=== PATIENT | female | born 1975 | race Caucasian/White ===

== ENCOUNTER 2020-03-25 05:07 | Inpatient (IN) | payer OTHER, SELFPAY ==
[2020-03-25] VITALS (19 sets, daily range): BP systolic 90–128; BP diastolic 44–74; PULSE 86–113; RESP 24–38; TEMP 36.9–37.1; O2SAT 88–98; BMI 39.2
--- NOTE | ~2020-03-25 | XR_ITS ---
EXAMINATION: XR chest 1V portable DATE: 03/30/2020 05:41 INDICATION: Respiratory failure. TECHNIQUE: A single frontal view of the chest was obtained. COMPARISON: Chest single view 03/29/2020 FINDINGS: There are airspace opacities in all right lung zones and in left mid and lower lung zones. No pleural effusion or pneumothorax. The heart size is normal. The endotracheal tube tip is 5.0 cm ab ove the samira. The nasogastric tube tip is in the stomach. A right internal jugular central venous c atheter is seen with tip at the superior cavoatrial junction. IMPRESSION: 1. Stable diffuse lung disease, consistent with pneumonia versus pulmonary edema versus acute respira tory distress syndrome (ARDS). Reviewed, dictated and finalized at location A. IMPRESSION: 1. Stable diffuse lung disease, consistent with pneumonia versus pulmonary tonya a versus acute respiratory distress syndrome (ARDS).
--- NOTE | ~2020-03-25 | US_ITS ---
EXAMINATION: US venous doppler [facility] DATE: 03/31/2020 15:22 INDICATION: Lower limb edema. TECHNIQUE: Grayscale ultrasound images without and with compression and Doppler ultrasound images of the bilateral lower extremity veins were obtained. COMPARISON: None. FINDINGS: The visualized portions of right common femoral vein, profunda (deep) femoral vein, femoral vein, pop liteal vein, peroneal veins, posterior tibial veins, and greater saphenous vein outflow are patent. The visualized portions of left common femoral vein, profunda femoral vein, femoral vein, popliteal v ein, peroneal veins, posterior tibial veins, and greater saphenous vein outflow are patent. IMPRESSION: 1. No deep venous thrombosis. Reviewed, dictated and finalized at location A.
--- NOTE | ~2020-03-25 | XR_ITS ---
EXAMINATION: XR chest ET placement DATE: 03/27/2020 06:48 INDICATION: Respiratory failure. TECHNIQUE: A single frontal view of the chest was obtained. COMPARISON: Chest single view 03/25/2020 FINDINGS: The patient is rotated to her left. There are airspace opacities in all right lung zones an d in left mid and lower lung zones. No pleural effusion or pneumothorax. The heart size is normal. Th e endotracheal tube tip is 1.2 cm above the samira. The nasogastric tube tip is beyond the inferior m argin of the radiograph, but at least to the stomach. IMPRESSION: 1. Airspace opacities in right lung and in left mid and lower lung zones with interval worsening, con sistent with pulmonary edema versus pneumonia. Reviewed, dictated and finalized at location A. IMPRESSION: 1. Airspace opacities in right lung and in left mid and lower lung zones with i nterval worsening, consistent with pulmonary edema versus pneumonia.
--- NOTE | ~2020-03-25 | XR_ITS ---
EXAMINATION: XR abdomen NG/feed tube insert DATE: 03/27/2020 06:48 INDICATION: Orogastric tube placement. TECHNIQUE: A semiupright view of the abdomen was obtained. COMPARISON: None. FINDINGS: The lower abdomen is excluded. There are no visible dilated loops of bowel. The orogastric tube tip is in the stomach. IMPRESSION: 1. Orogastric tube tip in the stomach. Reviewed, dictated and finalized at location A.
--- NOTE | ~2020-03-25 | XR_ITS ---
XR chest 1V portable DATE: 03/25/2020 06:22 INDICATION: Shortness of breath TECHNIQUE: Portable upright AP chest on 03/25/2020 at 0622 hours COMPARISON: None FINDINGS: There are prominent bilateral pulmonary infiltrates, more prominent centrally, right greate r than left. The distribution favors pulmonary edema but pneumonia is a consideration as well. Minimal if any pleural effusion is evident. No pneumothorax. Heart size is not optimally evaluated on AP projection because of magnification. IMPRESSION: Prominent bilateral pulmonary infiltrates; pulmonary edema versus pneumonia Reviewed, dictated and finalized at location A. IMPRESSION: Prominent bilateral pulmonary infiltrates; pulmonary edema versus p neumonia
--- NOTE | ~2020-03-25 | US_ITS ---
EXAMINATION: US art doppler w press UE BI DATE: 04/05/2020 13:35 INDICATION: Peripheral arterial disease. TECHNIQUE: Segmental pressures and plethysmographic and Doppler waveforms of the upper extremity brigette eli were obtained. COMPARISON: None. FINDINGS: The right brachial artery pressure was 108 mmHg. The left brachial artery pressure was not measured d ue to the IV. The right finger:brachial systolic pressure ratio is 0.78 (normal > 0.8). Segmental pre ssure gradients are normal. Arterial Doppler waveforms are normal (normal upstroke < 0.2 s). The left finger:brachial systolic pressure ratio is 0.82. Arterial Doppler waveforms are normal. IMPRESSION: 1. Borderline decreased right finger:brachial systolic pressure ratio, consistent with arterial occlu sive disease. Reviewed, dictated and finalized at location A. IMPRESSION: 1. Borderline decreased right finger:brachial systolic pressure ratio, consiste nt with arterial occlusive disease.
--- NOTE | ~2020-03-25 | XR_ITS ---
EXAMINATION: XR chest 1V portable EXAM DATE: 04/05/2020 05:57 INDICATION: Respiratory failure. COVID-19 pneumonia. TECHNIQUE: Portable AP frontal chest x-ray was obtained. Comparison is made to prior examination from 04/04, 04/03. FINDINGS: Endotracheal tube tip is 5 centimeters above the samira (ideal range is between 2 to 5 cm). There is a right-sided IJ central venous line. There is a nasogastric tube seen with tip collimated off the study, but below the left hemidiaphragm. Extensive bilateral acute airspace disease with air bronchograms, and relative sparing of the lung ap ices. Possible small pleural effusions. There is no pneumothorax suspected. The cardiac silhouett e is enlarged. The bones and soft tissues are unremarkable. There is no significant interval hurtado e compared to prior exam. IMPRESSION: 1. Tubes, line in position. 2. Extensive bilateral acute airspace disease unchanged. Reviewed, dictated and finalized at location A.
--- NOTE | ~2020-03-25 | XR_ITS ---
XR chest 1V portable 04/01/2020 05:34 Indication: Respiratory failure Procedure: AP portable chest Comparison: Comparison to multiple prior studies sequentially, with oldest reviewed study dated 03/28. Findings: Endotracheal tube tip 6 cm above the samira. Heart size normal. NG tube in the stomach. Rig ht IJ central line tip near the cavoatrial junction. Diffuse bilateral airspace disease which may rep resent edema or pneumonia. No significant pleural effusion or pneumothorax. Impression: 1: Diffuse bilateral airspace disease may represent edema or pneumonia. Reviewed, dictated and finalized at location A. Impression: 1: Diffuse bilateral airspace disease may represent edema or pneumonia.
--- NOTE | ~2020-03-25 | XR_ITS ---
XR chest 1V portable 04/02/2020 05:54 Indication: Pneumonia. Procedure: AP portable chest Comparison: Comparison to multiple prior studies sequentially, with oldest reviewed study dated 03/29. Findings: Endotracheal tube tip 6.7 cm above the samira. NG tube in the stomach. Unchanged diffuse bi lateral airspace disease which may represent edema or pneumonia. No significant pleural effusion or p neumothorax. Right IJ central line tip in the SVC. Impression: 1: Unchanged diffuse bilateral airspace disease, edema versus pneumonia. Reviewed, dictated and finalized at location A. Impression: 1: Unchanged diffuse bilateral airspace disease, edema versus pneumonia.
--- NOTE | ~2020-03-25 | XR_ITS ---
XR chest 1V portable 03/31/2020 06:02 Indication: Respiratory failure Procedure: AP portable chest Comparison: 03/27/2020 Findings: Endotracheal tube tip 3.4 cm above the samira. NG tube in the stomach. Cardiomegaly with pu lmonary edema. Right pleural effusion. No pneumothorax. Right IJ central line tip in the SVC. NG tube in the stomach. Impression: 1: Moderate cardiomegaly with pulmonary edema which has progressed since prior examination. Reviewed, dictated and finalized at location A. Impression: 1: Moderate cardiomegaly with pulmonary edema which has progressed since prior examination.
--- NOTE | ~2020-03-25 | XR_ITS ---
EXAMINATION: XR chest 1V portable DATE: 03/28/2020 05:44 INDICATION: Respiratory failure. TECHNIQUE: A single frontal view of the chest was obtained. COMPARISON: Chest single view 03/27/2020 FINDINGS: There are airspace opacities in all right lung zones and in left mid and lower lung zones. No pleural effusion or pneumothorax. The heart size is normal. The endotracheal tube tip is 4.2 cm ab ove the samira. The nasogastric tube tip is beyond the inferior margin of the radiograph, but at leas t to the stomach. A right internal jugular central venous catheter is seen with tip at the superior c avoatrial junction. IMPRESSION: 1. Stable airspace opacities in right lung and left mid and lower lung zones, consistent with pneumon ia versus pulmonary edema. Reviewed, dictated and finalized at location A. IMPRESSION: 1. Stable airspace opacities in right lung and left mid and lower lung zones, c onsistent with pneumonia versus pulmonary edema.
--- NOTE | ~2020-03-25 | XR_ITS ---
EXAMINATION: XR chest 1V portable EXAM DATE: 04/03/2020 06:07 INDICATION: Respiratory failure. COVID-19. TECHNIQUE: Portable AP frontal chest x-ray was obtained. Comparison is made to prior examination from 04/02/2020. FINDINGS: Endotracheal tube tip is 5-6 centimeters above the samira (ideal range is between 2 to 5 cm ). There is a right-sided IJ central venous line. There is a nasogastric tube seen with tip collimat ed off the study, but below the left hemidiaphragm. Extensive bilateral acute airspace disease with air bronchograms, and relative sparing of the lung ap ices. Possible small pleural effusions. There is no pneumothorax suspected. The cardiac silhouett e is enlarged. The bones and soft tissues are unremarkable. There is no significant interval hurtado e compared to prior exam. IMPRESSION: 1. ET tube could be safely advanced 1-2 cm. 2. Extensive bilateral acute airspace disease unchanged. Reviewed, dictated and finalized at location A.
--- NOTE | ~2020-03-25 | XR_ITS ---
EXAMINATION: XR chest 1V portable EXAM DATE: 04/04/2020 06:09 INDICATION: Respiratory failure. COVID-19 pneumonia. TECHNIQUE: Portable AP frontal chest x-ray was obtained. Comparison is made to prior examination from 04/03. FINDINGS: Endotracheal tube tip is 4 centimeters above the samira (ideal range is between 2 to 5 cm). There is a right-sided IJ central venous line. There is a nasogastric tube seen with tip collimated off the study, but below the left hemidiaphragm. Extensive bilateral acute airspace disease with air bronchograms, and relative sparing of the lung ap ices. Possible small pleural effusions. There is no pneumothorax suspected. The cardiac silhouett e is enlarged. The bones and soft tissues are unremarkable. There is no significant interval hurtado e compared to prior exam. IMPRESSION: 1. Tubes, line in position. 2. Extensive bilateral acute airspace disease unchanged. Reviewed, dictated and finalized at location A.
--- NOTE | ~2020-03-25 | XR_ITS ---
EXAMINATION: XR chest port-a-cath/central DATE: 03/27/2020 08:10 INDICATION: Central line placement. TECHNIQUE: A single frontal view of the chest was obtained. COMPARISON: Chest single view at 6:14 AM FINDINGS: There are airspace opacities in all right lung zones and in left mid and lower lung zones. No pleural effusion or pneumothorax. The heart size is normal. The endotracheal tube tip is 4.8 cm ab ove the samira. The nasogastric tube tip is beyond the inferior margin of the radiograph, but at leas t to the stomach. A right internal jugular central venous catheter is seen with tip at the superior c avoatrial junction. IMPRESSION: 1. New central line tip at superior cavoatrial junction. 2. Stable airspace opacities in right lung and in left mid and lower lung zones, consistent with pneu monia versus pulmonary edema. Reviewed, dictated and finalized at location A. IMPRESSION: 1. New central line tip at superior cavoatrial junction. 2. Stable airspace opacities in right lung and in left mid and lower lung zones , consistent with pneumonia versus pulmonary edema.
--- NOTE | ~2020-03-25 | XR_ITS ---
EXAMINATION: XR chest 1V portable DATE: 03/29/2020 05:28 INDICATION: Respiratory failure. TECHNIQUE: A single frontal view of the chest was obtained. COMPARISON: Chest single view 03/28/2020 FINDINGS: There are airspace opacities in all lung zones bilaterally with relative sparing of left eliana ng apex. No pleural effusion or pneumothorax. The heart size is normal. The endotracheal tube tip is 5.7 cm above the samira. The nasogastric tube tip is beyond the inferior margin of the radiograph, bu t at least to the stomach. A right internal jugular central venous catheter is seen with tip in the s uperior vena cava. IMPRESSION: 1. Diffuse lung disease with improvement on the left, consistent with pneumonia versus pulmonary tonya a. Reviewed, dictated and finalized at location A. IMPRESSION: 1. Diffuse lung disease with improvement on the left, consistent with pneumonia versus pulmonary edema.
--- NOTE | ~2020-03-25 | US_ITS ---
EXAMINATION: US art doppler w press LE DATE: 04/05/2020 13:35 INDICATION: Peripheral arterial disease. TECHNIQUE: Segmental pressures and plethysmographic and Doppler waveforms of the brachial and lower e xtremity arteries were obtained. COMPARISON: None. FINDINGS: Right brachial artery pressure is 106 mm Hg. The right ankle-brachial index (MACKENZIE) is 1.09 (normal >= 0.9-1.0). The right great toe-brachial index (TBI) could not be measured due to inability to cuff-occlude the artery (normal >= 0.65). Arterial Do ppler waveforms are biphasic from common femoral artery to popliteal artery, triphasic in posterior t ibial artery, and poorly detectable in dorsalis pedis. The left MACKENZIE is 0.99. The left great toe arterial signal was not detectable. Arterial Doppler wavefor ms are triphasic from common femoral artery to posterior tibial artery and biphasic in dorsalis pedis . IMPRESSION: 1. Undetectable arterial signal in left great toe. 2. Normal ABIs. Reviewed, dictated and finalized at location A.
--- NOTE | 2020-03-25 05:18 | ECG_ITS ---
Measurements Intervals [place] Rate: 109 P: 30 [place]: 170 QRS: 17 QRSD: 97 T: 85 QT: 329 QTc: 443 Interpretive Statements SINUS TACHYCARDIA LEFT VENTRICULAR HYPERTROPHY WITH ST-T CHANGE MINIMAL Q WAVES- INFERIOR LEADS BASELINE ARTIFACT- I ABNORMAL ECG Electronically Signed On 03-25-2020 7:03:20 CDT by Rafal Shook D.O.
--- NOTE | 2020-03-25 05:26 | ED.SOB ---
HPI - SOB/Dyspnea General Chief Complaint: Shortness of Breath/Dyspnea <Shelly Olvera MD - Last Filed: 03/26/20 04:11> Stated Complaint: weakness/ sob/ covid + <Shelly Olvera MD - Last Filed: 03/26/20 04:11> Time Seen by Provider: 03/25/20 05:19 <Shelly Olvera MD - Last Filed: 03/26/20 04:11> Source: patient <Shelly Olvera MD - Last Filed: 03/26/20 04:11> Mode of arrival: EMS <Shelly Olvera MD - Last Filed: 03/26/20 04:11> Limitations: no limitations <Shelly Olvera MD - Last Filed: 03/26/20 04:11> History of Present Illness HPI Narrative: This patient is a 45 year old female who presents from home for evaluation of shortness with COVID 19. Patient reports she developed symptoms of Covid last Friday evening. Her symptoms include cough, congestion and shortness of breath. She has also been having chills and fever. Tonight she was unable catch her breath. She also reports midsternal chest pressure that resolved when EMS placed her on oxygen. EMS states her oxygen was low but did not specify oxygen saturation. She denies nausea, vomiting or diarrhea. <Shelly Olvera MD - Last Filed: 03/26/20 04:11> Related Data Home Medications: Home Medications Medication Instructions Recorded Confirmed atorvastatin 20 mg PO HS 03/25/20 03/25/20 cephalexin [Keflex] 500 mg PO QID 03/25/20 03/25/20 citalopram 40 mg PO DAILY 03/25/20 03/25/20 lisinopril 10 mg PO DAILY 03/25/20 03/25/20 metoprolol tartrate 25 mg PO DAILY 03/25/20 03/25/20 mirabegron [Myrbetriq] 25 mg PO DAILY 03/25/20 03/25/20 nortriptyline 25 mg PO HS 03/25/20 03/25/20 pantoprazole 20 mg PO DAILY 03/25/20 03/25/20 warfarin 8 mg PO DAILY 03/25/20 03/25/20 <Shelly Olvera MD - Last Filed: 03/26/20 04:11> Allergies/Adverse Reactions: Allergies Allergy/AdvReac Type Severity Reaction Status Date / Time No Known Allergies Allergy Verified 03/25/20 05:26 <Shelly Olvera MD - Last Filed: 03/26/20 04:11> Review of Systems Review of Systems: All systems reviewed & are unremarkable except as noted in HPI and below <Shelly Olvera MD - Last Filed: 03/26/20 04:11> Constitutional: Constitutional: Denies chills and Denies fever(s) <Shelly Olvera MD - Last Filed: 03/26/20 04:11> [facility]LY [facility], [facility] Past Medical History Medical History: Medical History (Updated 03/25/20 @ 15:51 by Zakia Palomares PA-C) Anxiety Cerebrovascular accident (~2017) With mild right foot weakness. 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 Depression Gastroesophageal reflux disease Hyperlipidemia Hypertension Urinary, incontinence, stress female <Shelly Olvera MD - Last Filed: 03/26/20 04:11> Surgical History Surgical History: Surgical History (Updated 03/25/20 @ 13:00 by Zakia Palomares PA-C) History of bilateral salpingectomy (~2018) History of bladder suspension procedure (~2018) History of cholecystectomy (~1997) History of endometrial ablation (~2018) Previous section In 1993 & 1995. <Shelly Olvera MD - Last Filed: 03/26/20 04:11> Family History Family History: Family History (Updated 03/25/20 @ 13:01 by Zakia Palomares PA-C) Father Diabetes mellitus Lupus anticoagulant disorder Mother Hypertension <Shelly Olvera MD - Last Filed: 03/26/20 04:11> Social History Social History: Social History (Updated 03/25/20 @ 15:52 by Zakia Palomares PA-C) Social History: Surrogate decision maker: Morgan Yang, spouse. Code status: Full code. Smoking packs per day: 0.05 Smoking cigarettes per day: 1.0 Years smoked: 20 Smoking pack-years: 1.00 Smoking status: Former smoker Tobacco type: cigarettes Smoking end date: 07/07/17 Alcohol intake: never Substance use: never Additional living arrangements comments: Resides in [facility]
[2020-03-25 05:43] LABS: Alveolar/Arterial O2 Gradient 223.2 mmHg; Base Excess ABG -2.5 mEq/l (+/-2.0); HCO3 ABG 21.4 mEq/l (22.0-26.0); Oxygen Saturation ABG 90.9 % (95.0-100.0); PCO2 ABG 34.4 mmHg (35.0-45.0); PO2 ABG 58.5 mmHg (80.0-100.0); Total Hemoglobin 12.6 g/dL (12.0-18.0); pH ABG 7.412 (7.350-7.450)
[2020-03-25 05:44] LABS: Oxygen Content ABG 15.6 %vol (16.0-22.0); Oxyhemoglobin 88.2 % THb (90.0-100.0)
[2020-03-25 05:45] LABS: Device NASAL CANNULA; Fractional Inspired Oxygen 45 %; Modified Allen's Test Pass; Site Drawn LEFT RADIAL
[2020-03-25 05:52] LABS: Basophils Percent Auto 0.3 % (0.2-1.2); Eosinophils Percent Auto 0.1 % (0-4.4); Hematocrit 38.2 % (37.0-47.0); Hemoglobin 12.1 g/dL (12.0-15.0); Immature Granulocyte Absolute 0.05 K/mm3 (0.00-0.031); Immature Granulocyte Percent A 0.5 % (0-0.5); Lymphocytes Absolute Auto 0.79 K/mm3 (0.9-3.2); Lymphocytes Percent Auto 8.3 % (18.3-44.2); Mean Corpuscular HGB Conc 31.7 g/dl (32-36); Mean Corpuscular Hemoglobin 24.4 pg (26-34); Mean Platelet Volume 11.2 fl (7.4-10.4); Monocytes Absolute Auto 0.5 K/mm3 (0.1-0.6); Monocytes Percent Auto 5.6 % (2.6-8.5); Neutrophils Absolute Auto 8.1 K/mm3 (1.3-6.7); Neutrophils Percent Auto 85.2 % (45.5-73.1); Platelet Count Result 216 k/mm3 (150-375); Red Blood Count 4.96 M/mm3 (4.2-5.4); Red Cell Distribution Width 17.6 % (11.5-14.5); White Blood Count 9.5 K/mm3 (4.5-10.0)
[2020-03-25 06:02] LABS: INR 2.3; Prothrombin Time 25.2 Seconds (11.1-14.7)
[2020-03-25 06:03] LABS: Partial Thromboplastin Time 60.9 SECONDS (22.3-36.8)
[2020-03-25 06:04] LABS: D Dimer 1.42 ug/mL (<0.48)
[2020-03-25 06:09] LABS: Lactic Acid Reflex 1.6 mmol/L (0.7-2.1)
[2020-03-25 06:14] LABS: Alanine Aminotransferase 32 U/L (4-35); Albumin Level 3.5 g/dL (3.5-5.1); Alkaline Phosphatase 84 U/L (38-126); Anion Gap 7 mmol/L (8-16); Aspartate Amino Transferase 58 U/L (14-36); Bilirubin,Total 0.4 mg/dL (0.2-1.3); Blood Urea Nitrogen 23 mg/dL (7-17); CRP 7.9 mg/dL (<1.0); Calcium 8.6 mg/dL (8.4-10.2); Carbon Dioxide 25 mmol/L (22-30); Chloride 99 mmol/L (98-107); Estimated CRCL calculation 58 ml/min; Estimated Glomerular Filt Rate 32; Glucose 126 mg/dL (65-105); Potassium 4.1 mmol/L (3.4-5.0); Sodium 131 mmol/L (137-145)
[2020-03-25 06:25] LABS: Troponin I 0.048 ng/mL (0.000-0.034)
[2020-03-25] MEDS: LACTATED RINGERS 1,000 ML 999 ML IV CONT (06:38)
--- NOTE | 2020-03-25 08:25 | PC.NURSE ---
Pt up to bathroom via wheelchair and O2. Pt became very SOB and O2 dropped to 69%. Placed pt on 15 L non rebreather.
--- NOTE | 2020-03-25 10:20 | ADMGEN ---
This patient, Nadia Yang, was admitted to Intensive Care Unit-1. Patient/family oriented to hospital policies and general routines including ID bracelet, bed and alarms, visiting hours, pain management, procedures, bathroom and other care routines, personal items, smoking policy, room service/diet, and visiting hours. Valuables list has been completed. Information on how to activate the Rapid Response Team has been discussed. Patient/Family are encouraged to report perceived risks to care and to ask questions if they do not understand what they are told or what they should do.
--- NOTE | 2020-03-25 13:00 | PM.IMHP ---
H&P: HPI History of Present Illness Date/Time: 03/25/20 13:00 <Zakia Palomares PA-C - Last Filed: 03/25/20 16:14> Chief complaint: Shortness of breath. <Zakia Palomares PA-C - Last Filed: 03/25/20 16:14> Narrative: Nadia Yang is a 45-year-old female with history of stroke in 2018 on long-term anticoagulation with warfarin, hypertension, hyperlipidemia, and GERD who presented to the emergency department earlier this morning via EMS from home for evaluation of shortness of breath. She has been in quarantine from work for the past 2 weeks as her was exposed to COVID-19. Unfortunately sometime last Friday evening she began feeling poorly to include subjective fever, chills, sweats, diffuse body aches, headaches, mildly productive cough, congestion, and shortness of breath. She has been taking Tylenol for her fevers and has been trying to stay hydrated however her appetite is not that great. Over the past 48 hours or so she has had progressive shortness of breath and she called EMS this morning and was reportedly hypoxic however SpO2 was not documented in their notes. She has since been started on Airvo and feels much better with added pressure. She has no significant complaints at this time, and she specifically denies anosmia, dysgeusia, chest pain, pleuritic pain, palpitations, orthopnea, PND, nausea, vomiting, and diarrhea. <Zakia Palomares PA-C - Last Filed: 03/25/20 16:14> Review of Systems Review of Systems: Narrative: Twelve systems were reviewed with pertinent positives and negatives as per HPI. Except as documented, all other systems were reviewed and are negative. <Zakia Palomares PA-C - Last Filed: 03/25/20 16:14> [facility] Past Medical History Medical History: Medical History Anxiety Cerebrovascular accident (~2018) With mild right foot weakness. 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 Depression Gastroesophageal reflux disease Hyperlipidemia Hypertension Urinary, incontinence, stress female <ANUJ Mccann Last Filed: 03/25/20 16:14> Surgical History Surgical History: Surgical History History of bilateral salpingectomy (~2018) History of bladder suspension procedure (~2018) History of cholecystectomy (~1997) History of endometrial ablation (~2018) Previous section In 1993 & 1995. <Zakia Palomares PA-C - Last Filed: 03/25/20 16:14> Family History Family History: Family History Father Diabetes mellitus Lupus anticoagulant disorder Mother Hypertension <Zakia Palomares PA-C - Last Filed: 03/25/20 16:14> Social History Social History: Social History Social History: Surrogate decision maker: Morgan Yang, spouse. Code status: Full code. Smoking packs per day: 0.05 Smoking cigarettes per day: 1.0 Years smoked: 20 Smoking pack-years: 1.00 Smoking status: Former smoker Tobacco type: cigarettes Smoking end date: 07/07/17 Alcohol intake: never Substance use: never Additional living arrangements comments: Resides in [place], [place] with her spouse. Children are grown. 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 Gender identity (if verbalized by the patient): Female Spiritual care concerns: No <Zakia Palomares PA-C - Last Filed: 03/25/20 16:14> Meds Home Medications and Allergies Home medications: Home Medications Medication Instructions Recorded Confirmed Type atorvastatin 20 mg PO HS 03/25/20 03/25/20 History cephalexin [Keflex] 500 mg PO QID 03/25/20 03/25/20 History citalopram 40 mg PO DAILY 03/25/20 03/25/20 History lisinopril 10 mg PO DAILY 03/25/20 03/25/20 History
[2020-03-25 13:01] LABS: Anion Gap 7 mmol/L (8-16); Blood Urea Nitrogen 24 mg/dL (7-17); Calcium 8.4 mg/dL (8.4-10.2); Carbon Dioxide 23 mmol/L (22-30); Chloride 100 mmol/L (98-107); Estimated CRCL calculation 73 ml/min; Estimated Glomerular Filt Rate 44; Glucose 168 mg/dL (65-105); Potassium 4.4 mmol/L (3.4-5.0); Sodium 130 mmol/L (137-145)
[2020-03-25 13:12] LABS: NT Pro B Type Natriuretic Pept 168 PG/ML (5-100); Troponin I 0.016 ng/mL (0.000-0.034)
[2020-03-25] MEDS: REMDESIVIR 200 MG/NS 250 ML 200 MG/250 ML BAG 250 MG IVPB (14:19)
[2020-03-25 16:00] LABS: Lactate Dehydrogenase 1659 U/L (313-618)
[2020-03-25 16:11] LABS: Troponin I 0.012 ng/mL (0.000-0.034)
[2020-03-25] MEDS: SODIUM CHLORIDE 0.9% IV 1,000 ML 100 ML IV CONT (16:42)
[2020-03-25] MEDS: WARFARIN (*PBKC) 4 MG TABLET 8 MG PO (16:46)
[2020-03-25] MEDS: CITALOPRAM HYDROBROMIDE 20 MG TABLET 40 MG PO (17:10)
[2020-03-25] MEDS: MIRABEGRON 25 MG ER TABLET PO (17:10)
[2020-03-25] MEDS: NORTRIPTYLINE HCL 25 MG CAPSULE PO (19:45)
[2020-03-25] MEDS: ATORVASTATIN 20 MG TABLET PO (19:45)
[2020-03-26] VITALS (23 sets, daily range): BP systolic 96–125; BP diastolic 56–84; PULSE 83–99; RESP 23–40; TEMP 36.4–37.1; O2SAT 88–98
[2020-03-26 07:04] LABS: Hematocrit 36.6 % (37.0-47.0); Hemoglobin 11.5 g/dL (12.0-15.0); Mean Corpuscular HGB Conc 31.4 g/dl (32-36); Mean Corpuscular Hemoglobin 24.1 pg (26-34); Mean Corpuscular Volume 76.7 fl (80-100); Mean Platelet Volume 10.1 fl (7.4-10.4); Platelet Count Result 199 k/mm3 (150-375); Red Blood Count 4.77 M/mm3 (4.2-5.4); Red Cell Distribution Width 17.3 % (11.5-14.5)
[2020-03-26 07:15] LABS: INR 2.9; Prothrombin Time 29.5 Seconds (11.1-14.7)
[2020-03-26 07:18] LABS: Hemoglobin A1C 5.8 % (<5.7)
[2020-03-26 07:26] LABS: Alanine Aminotransferase 32 U/L (4-35); Albumin Level 3.6 g/dL (3.5-5.1); Alkaline Phosphatase 80 U/L (38-126); Anion Gap 5 mmol/L (8-16); Aspartate Amino Transferase 73 U/L (14-36); Bilirubin,Total 0.6 mg/dL (0.2-1.3); Blood Urea Nitrogen 21 mg/dL (7-17); Calcium 8.7 mg/dL (8.4-10.2); Carbon Dioxide 23 mmol/L (22-30); Chloride 105 mmol/L (98-107); Estimated CRCL calculation 93 ml/min; Estimated Glomerular Filt Rate 59; Glucose 108 mg/dL (65-105); Potassium 4.8 mmol/L (3.4-5.0); Sodium 133 mmol/L (137-145)
[2020-03-26 08:24] LABS: Lactate Dehydrogenase 2413 U/L (313-618)
--- NOTE | 2020-03-26 08:48 | WPDCNINT ---
Assessment and Plan Assessment and plan (1) Acute respiratory failure with hypoxia: Code(s): J96.01 - Acute respiratory failure with hypoxia Status: Acute Assessment and Plan: Acute Respiratory failure secondary to COVID-19 pneumonia Continue AirVo support to prevent hypoxemia and end organ damage. PCXR IMPRESSION: Prominent bilateral pulmonary infiltrates; pulmonary edema versus pneumonia ABG reviewed IS, OOB Bronchodilators (2) Pneumonia due to COVID-19 virus: Code(s): U07.1 - COVID-19; J12.89 - Other viral pneumonia Status: Acute Assessment and Plan: SARS-CoV-2 PCR positive Patient is in Airborne, Droplet and Contact Isolation Continue dexamethasone and Remdesivir. Both started 03/25 Continue anticoagulation with warfarin monitor inflammatory markers Discussed benefits and risks of convalscent plasma therapy for COVID-19. I explained patient the risks of donor plasma which includes allergic reaction, transfusion reaction, possible transmission of infections like Hepatitis and HIV and even . Explained that donor plasma has shown benefit in some studies but is not a proven therapy. Patient understands the risks, is agreeable to proceed and gave her informed consent. since patient has been worsening as far as hypoxia is concerned and still not on mechanical ventilation, she may benefit from therapy. I have placed order for 1 unit of convalscent plasma. (3) Renal failure: Code(s): N19 - Unspecified kidney failure Status: Acute Assessment and Plan: patient presented with elevated creatinine of 1.7 and was assumed to be secondary to dehydration. And was given conservative IV fluids on presentation and creatinine has now improved normal level of 1. She does have good urine output Continue to monitor creatinine, urine output and electrolytes hold further IV fluids at this time. (4) Cerebrovascular accident: Onset Date: ~2017 Code(s): I63.9 - Cerebral infarction, unspecified Status: Acute Assessment and Plan: history of CVA although details are not available this time continue anticoagulation with warfarin the patient is on. Daily INR monitoring continue statin (5) Hypertension: Code(s): I10 - Essential (primary) hypertension Status: Acute Assessment and Plan: blood pressure isn't controlled range continue p.o. metoprolol that she is on Additional Plan DVT prophylaxis - patient is on Coumadin Stress ulcer prophylaxis - continue PPI Nutrition - regular diet Code Status - I discussed with patient this in detail and she requests to be Full Code at this time. She is agreeable to intubation if needed Total Critical Care Time - 40 minutes Due to a high probability of clinically significant, life threatening deterioration, the patient required my highest level of preparedness to intervene emergently and I personally spent this critical care time directly and personally managing the patient. This critical care time included obtaining a history; examining the patient; pulse oximetry; ordering and review of studies; arranging urgent treatment with development of a management plan; evaluation of patient's response to treatment; frequent reassessment; and discussions with other providers. It was exclusive of separately billable procedures and treating other patients and teaching time. 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 She has been in quarantine from work for the past 2 weeks as her was exposed to
[2020-03-26] MEDS: DEXAMETHASONE SOD PHOS INJ 4 MG/ML VIAL 6 MG IV PUSH (08:50)
[2020-03-26] MEDS: LEVALBUTEROL HFA (*SP) 15 GM INHALER 2 PUFF INHALATION ×2 (08:50→16:36)
[2020-03-26] MEDS: CITALOPRAM HYDROBROMIDE 20 MG TABLET 40 MG PO (08:51)
[2020-03-26] MEDS: METOPROLOL TARTRATE 25 MG TABLET PO (08:51)
[2020-03-26] MEDS: MIRABEGRON 25 MG ER TABLET PO (08:51)
[2020-03-26] MEDS: PANTOPRAZOLE SOD SESQUIHYDRATE 20 MG TAB PO (08:51)
--- NOTE | 2020-03-26 11:54 | PC.NURSE ---
Dr. Acuña ordered 1 unit COVID-19 Convalescent plasma for patient. Enrollment forms unavailable for printing from FDA website. Doctor, manager of photography, director, RN, and blood bank notified. Calls to be made 03/27/20 to obtain forms to order COVID-19 convalescent plasma for patient.
--- NOTE | 2020-03-26 14:09 | PM.IMPN ---
Progress Note: A&P Assessment and Plan (1) Sepsis: Code(s): A41.9 - Sepsis, unspecified organism Status: Acute Assessment and Plan: Present on admission and supported by tachycardia, tachypnea, and organ dysfunction due to sepsis from COVID-19, with a qSOFA score of 2 and a SOFA score of 7. Lactic acid levels within normal limits, blood cultures have been obtained and are pending. 03/26/20 14:09 patient is a 45-year-old female state history of stroke presented emergency department with shortness of breath and hypoxic patient is being expose to COVID-19 as her is positive and concerned that patient have COVID-19 has been tested and positive, patient was placed in isolation and on Airvo which did improve patient oxygen saturation, today spoke with the dry man patient is hypoxic and on Airvo, and dexamethasone suggesting the patient will benefit from convalscent plasma therapy for COVID-19, Dr. Acuña spoke with the patient and has agreed to receive the treatment and 1 unit dose ordered, I spoke the patient on the phone and saw from outside her last door patient is feeling much better compared to when she arrived, denies any fever or chills and not as hypoxic. appreciate Dr. Acuña with his help managing this patient (2) Acute respiratory failure with hypoxia: Code(s): J96.01 - Acute respiratory failure with hypoxia Status: Acute Assessment and Plan: Secondary to COVID pneumonia. Continue Airvo therapy. (3) Pneumonia due to COVID-19 virus: Code(s): U07.1 - COVID-19; J12.89 - Other viral pneumonia Status: Acute Assessment and Plan: She has been started remdesivir and dexamethasone per protocol. Continue contact, droplet, airborne isolation. (4) Elevated troponin: Code(s): R79.89 - Other specified abnormal findings of blood chemistry Status: Acute Assessment and Plan: Likely these are elevated in the setting of hypoxia as she is having no chest pain. Continue to trend to rule out significant jump, and monitor on telemetry overnight. Obtain echocardiogram. (5) Renal failure: Code(s): N19 - Unspecified kidney failure Status: Acute Assessment and Plan: Patient denies history of renal failure, and I suspect this is secondary to infection from COVID pneumonia. May also be a component of dehydration due to insensible losses from fevers. Cautious IV fluid rehydration overnight only, to avoid volume overload. (6) Current use of oysterman anticoagulation: Code(s): Z79.01 - long term care phlebotomist (current) use of anticoagulants Status: Acute Assessment and Plan: INR is therapeutic at 2.3 and will be monitored daily. (7) Hypertension: Code(s): I10 - Essential (primary) hypertension Status: Acute Assessment and Plan: Blood pressures were reviewed and they have been running a bit soft at times. For now will continue with her metoprolol but hold lisinopril. Continue to monitor blood pressures closely. Subjective Date/time seen: 03/26/20 14:09 patient is a 45-year-old female state history of stroke presented emergency department with shortness of breath and hypoxic patient is being expose to COVID-19 as her is positive and concerned that patient have COVID-19 has been tested and positive, patient was placed in isolation and on Airvo which did improve patient oxygen saturation, today spoke with the dry man patient is hypoxic and on Airvo, and dexamethasone suggesting the patient will benefit fr
[2020-03-26] MEDS: REMDESIVIR 100 MG/NS 250 ML 100 MG/250 ML BAG 250 MG IVPB (14:37)
[2020-03-26] MEDS: FUROSEMIDE INJ 40 MG/4 ML VIAL 20 MG IV PUSH (17:49)
--- NOTE | 2020-03-26 20:10 | PC.NURSE ---
Spoke with Dr. Acuña. Patient states she doesn't feel short of breath. May increase Bipap settings to 16/8. If patient continues to deteriorate call for further orders as patient is a full code and may need intubation. [facility] notified, changes are being made.
[2020-03-26] MEDS: NORTRIPTYLINE HCL 25 MG CAPSULE PO (20:30)
[2020-03-26] MEDS: ATORVASTATIN 20 MG TABLET PO (20:30)
[2020-03-26] MEDS: WARFARIN (*PBKC) 4 MG TABLET 8 MG PO (20:30)
[2020-03-27] VITALS (76 sets, daily range): BP systolic 87–130; BP diastolic 47–92; PULSE 61–130; RESP 16–40; TEMP 36.1–36.8; O2SAT 91–100; BMI 39.3
[2020-03-27 03:45] LABS: Hematocrit 35.1 % (37.0-47.0); Hemoglobin 11.1 g/dL (12.0-15.0); Mean Corpuscular HGB Conc 31.6 g/dl (32-36); Mean Corpuscular Hemoglobin 24.3 pg (26-34); Mean Platelet Volume 10.6 fl (7.4-10.4); Platelet Count Result 236 k/mm3 (150-375); Red Blood Count 4.56 M/mm3 (4.2-5.4); Red Cell Distribution Width 17.6 % (11.5-14.5); White Blood Count 11.6 K/mm3 (4.5-10.0)
[2020-03-27 03:55] LABS: INR 3.4
[2020-03-27 03:58] LABS: Alanine Aminotransferase 32 U/L (4-35); Albumin Level 3.3 g/dL (3.5-5.1); Alkaline Phosphatase 89 U/L (38-126); Anion Gap 6 mmol/L (8-16); Aspartate Amino Transferase 67 U/L (14-36); Bilirubin,Total 0.5 mg/dL (0.2-1.3); Blood Urea Nitrogen 23 mg/dL (7-17); Calcium 8.8 mg/dL (8.4-10.2); Carbon Dioxide 28 mmol/L (22-30); Chloride 103 mmol/L (98-107); Estimated CRCL calculation 93 ml/min; Estimated Glomerular Filt Rate 59; Glucose 105 mg/dL (65-105); Magnesium 1.8 mg/dL (1.6-2.3); Potassium 3.9 mmol/L (3.4-5.0); Sodium 137 mmol/L (137-145)
[2020-03-27] MEDS: LORazepam (*CRX) 0.5 MG TABLET PO (04:26)
[2020-03-27] MEDS: PROPOFOL IV EMULSION 100 ML 3.9 MG IV CONT (06:29)
[2020-03-27] MEDS: RAPID SEQUENCE INTUBATION KIT 1 EACH (06:33)
[2020-03-27] MEDS: FENTANYL 2,500MCG/NS250ML(*CRX 2,500 MCG/250 ML BAG IV CONT (06:34)
[2020-03-27] MEDS: ROCURONIUM BROMIDE 50 MG/5 ML VIAL 40 MG IV PUSH (06:54)
--- NOTE | 2020-03-27 06:54 | WPDPROCEDUR ---
Procedures Intubation Intubation Date: 03/27/20 Intubation Time: 05:55 A pre-procedural Time-Out was completed immediately before starting the procedure and confirmed: Patient Identification, Site, Procedure, Patient Position and the Availability of Requisite Equipment: Yes Sedative: etomidate Mg given: 40 Paralytic: succinylcholine Mg given: 100 Laryngoscope: fiber optic video scope ET tube size: 7.5 Tube secured depth (cm): 26 Tube secured location: lips Tube placement confirmation: visualized tube passing through cords, equal breath sounds bilaterally, no breath sounds over epigastrium and confirmation by capnometry Patient tolerated procedure: well and no complications Intubation complications: hypoxia (88%)
--- NOTE | 2020-03-27 07:00 | WPDINTPN ---
Progress Note: A&P Assessment and Plan (1) Acute respiratory failure with hypoxia: Code(s): J96.01 - Acute respiratory failure with hypoxia Status: Acute Assessment and Plan: Acute Respiratory failure secondary to COVID-19 pneumonia. 03/25- patient was on 8 L nasal cannula on admission 03/26- hypoxia worsened and patient was on AirVo. Later in the evening patient was placed on BiPAP due to continued worsening of hypoxia and was given Lasix. 03/27- Patient required to be intubated early this morning Continue full mechanical ventilation support to prevent hypoxemia/hypercarbia and end organ damage ABGs pending Peep is at 12 and FiO2 is at 100%. PCXR reviewed. ET tube was withdrawn 2 cm earlier after the 1st chest x-ray but ETT advanced by 1 cm after the last chest x-ray obtained this morning Currently at 26 cm at the lip Low tidal volume ventilation strategy to prevent volutrauma Bronchodilators Patient will need neuromuscular doretha to prevent deterioration and desaturation at least for 1st 24 hours I will consider prone ventilation depending on her response echocardiogram is ordered and pending (2) Pneumonia due to COVID-19 virus: Code(s): U07.1 - COVID-19; J12.89 - Other viral pneumonia Status: Acute Assessment and Plan: SARS-CoV-2 PCR positive Patient is in Airborne, Droplet and Contact Isolation Continue dexamethasone and Remdesivir. Both started 03/25 Continue anticoagulation monitor inflammatory markers Convalscent plasma is ordered for patient afternoon obtaining informed consent. there has been delay in obtaining the plasma to change in program and requirements as per the blood bank who supplies. I will continue pursue that today (3) Renal failure: Code(s): N19 - Unspecified kidney failure Status: Acute Assessment and Plan: patient presented with elevated creatinine of 1.7 and was assumed to be secondary to dehydration. And was given conservative IV fluids on presentation and creatinine has now improved normal level of 1. she was given 20 mg of Lasix yesterday due to worsening hypoxia to rule out any component of pulmonary edema patient was given a small fluid bolus at the time of intubation due to drop in blood pressure Continue to monitor creatinine, urine output and electrolytes hold further IV fluids at this time. (4) Cerebrovascular accident: Onset Date: ~2017 Code(s): I63.9 - Cerebral infarction, unspecified Status: Acute Assessment and Plan: history of CVA although details are not available this time continue anticoagulation. INR is supratherapeutic hence will hold warfarin at this time Daily INR monitoring once INR is in sub therapeutic range will transition to Lovenox or heparin inpatient for more accurate regulation and monitoring of anticoagulation continue statin (5) Hypertension: Code(s): I10 - Essential (primary) hypertension Status: Acute Assessment and Plan: blood pressure is on the softer side now after intubation and sedation will hold antihypertensives Additional Plan DVT prophylaxis - patient is on Coumadin and INR is supratherapeutic Stress ulcer prophylaxis - continue PPI Nutrition - NPO at this time will start tube feeds as soon as possible Code Status - I discussed with patient this in detail on admission and patient requests to be Full Code at this time. She was agreeable to intubation . central line was placed emergently due to poor IV access as patient required multiple infusions for sedation and paralysis from mechanical ventilation and may need vasopressor Total Critical Care Time - 60 minutes Due to a high probability of clinically significant, life threatening deterioration, the patient required my highest level of preparedness to intervene emergently and I personally spent this critical care time directly and personally managing the patient. This critical ca
[2020-03-27] MEDS: MIDAZOLAM HCL (*CRX) 2 MG/2 ML VIAL 4 MG IV PUSH (08:20)
[2020-03-27] MEDS: PROPOFOL IV EMULSION 100 ML 39.5 MG IV CONT ×7 (08:24→23:00)
[2020-03-27] MEDS: DEXAMETHASONE SOD PHOS INJ 4 MG/ML VIAL 6 MG IV PUSH (08:25)
[2020-03-27] MEDS: CITALOPRAM HYDROBROMIDE 20 MG TABLET 40 MG PO (08:25)
[2020-03-27] MEDS: METOPROLOL TARTRATE 25 MG TABLET PO (08:25)
--- NOTE | 2020-03-27 08:43 | P.PCNBED_ITS ---
Procedures Central Line Placement Right IJ: Central Line Date: 03/27/20 Central Line Time: 07:30 Performed Emergently - Given emergent patient condition, temporal constraints may have precluded informed consent.: Yes Time Out Performed: Yes Patient Position: supine Patient placed on monitor/pulse ox: Yes Provider Prep: mask, sterile gown, sterile gloves, Max. sterile barrier precautions, cap and hand hygiene with conventional soap/water or alcohol based hand rub Central line prep: 2% Chlorhexidine scrub Sterile US Technique with sterile gel/sterile probe covers: Yes Central line lumen inserted: single and triple Macedonian: 7 Length (cm): 16 Depth of Insertion (cm): 16 Post procedure: sutured in place, good blood return, all ports aspirated, flushed, capped, tegaderm, hemostatic disc and aseptic technique maintained throughout procedure Post procedure x-ray: tip of catheter in good position and no pneumothorax seen Patient tolerated procedure: well Complications: none Additional comments: Required 2 sticks
[2020-03-27 08:59] LABS: Alveolar/Arterial O2 Gradient 497.3 mmHg; Base Excess ABG -2.3 mEq/l (+/-2.0); Fractional Inspired Oxygen 100 %; HCO3 ABG 24.4 mEq/l (22.0-26.0); Modified Allen's Test Pass; Oxygen Content ABG 15.8 %vol (16.0-22.0); Oxygen Saturation ABG 98.9 % (95.0-100.0); Oxyhemoglobin 98.4 % THb (90.0-100.0); PCO2 ABG 50.3 mmHg (35.0-45.0); PO2 ABG 165.4 mmHg (80.0-100.0); PO2 FiO2 Ratio Arterial Blood 1.65 %; Site Drawn LEFT RADIAL; Total Hemoglobin 11.2 g/dL (12.0-18.0); pH ABG 7.303 (7.350-7.450)
[2020-03-27 09:00] LABS: Arterial Blood Gas PEEP 12 cmH2O; Arterial Blood Gas Tidal Volume 400 ml; Arterial Blood Gas Vent Mode CMV; Arterial Blood Gas Ventilator rate 28 /MIN; Device VENTILATOR
[2020-03-27] MEDS: CISATRACURIUM BESYLATE 20 MG/10 ML VIAL 19.7 MG IV PUSH (09:01)
[2020-03-27] MEDS: MAGNESIUM SULF 2 GM/WATER 50ML 2 GM/50 ML BAG IVPB (09:01)
[2020-03-27] MEDS: NOREPINEPHRINE 8 MG/D5W 250 ML 8 MG/250 ML BAG 9.4 MG IV CONT (09:02)
[2020-03-27] MEDS: PANTOPRAZOLE SODIUM IV 40 MG VIAL IV PUSH (10:57)
[2020-03-27] MEDS: CENTRAL LINE FLUSH 10 ML IV PUSH ×2 (13:04→20:04)
[2020-03-27] MEDS: REMDESIVIR 100 MG/NS 250 ML 100 MG/250 ML BAG 250 MG IVPB (14:02)
--- NOTE | 2020-03-27 14:19 | P.PNIM_ITS ---
Progress Note: A&P Assessment and Plan (1) Sepsis: Code(s): A41.9 - Sepsis, unspecified organism Status: Acute Assessment and Plan: * Present on admission and supported by tachycardia, tachypnea, and organ dysf unction due to sepsis from COVID-19, with a qSOFA score of 2 and a SOFA score of 7. * Lactic acid levels within normal limits, blood cultures have been obtained and are pending. 03/27/20 14:19 patient is a 45-year-old female state history of stroke presented emergency department with shortness of breath and hypoxic patient is being expose to COVID-19 as her is positive and concerned that patient have COVID-19 has been tested and positive, patient was placed in isolation and on Airvo which did improve patient oxygen saturation, today spoke with the country director patient is hypoxic and on Airvo, and dexamethasone suggesting the patient will benefit from convalscent plasma therapy for COVID-19, on 03/27 Dr. 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 Acuña patient is on convalscent plasma therapy and will Continue dexamethasone and Remdesivir. Both started 03/25 Continue anticoagulation, will continue to monitor and further recommendation to soledad reich (2) Acute respiratory failure with hypoxia: Code(s): J96.01 - Acute respiratory failure with hypoxia Status: Acute Assessment and Plan: * Secondary to COVID pneumonia. * Continue Airvo therapy. (3) Pneumonia due to COVID-19 virus: Code(s): U07.1 - COVID-19; J12.89 - Other viral pneumonia Status: Acute Assessment and Plan: * She has been started remdesivir and dexamethasone per protocol. * Continue contact, droplet, airborne isolation. (4) Elevated troponin: Code(s): R79.89 - Other specified abnormal findings of blood chemistry Status: Acute Assessment and Plan: * Likely these are elevated in the setting of hypoxia as she is having no chest pain. * Continue to trend to rule out significant jump, and monitor on telemetry overnight. * Obtain echocardiogram. (5) Renal failure: Code(s): N19 - Unspecified kidney failure Status: Acute Assessment and Plan: * Patient denies history of renal failure, and I suspect this is secondary to infection from COVID pneumonia. * May also be a component of dehydration due to insensible losses from fevers. * Cautious IV fluid rehydration overnight only, to avoid volume overload. (6) Current use of long term care phlebotomist anticoagulation: Code(s): Z79.01 - long term care phlebotomist (current) use of anticoagulants Status: Acute Assessment and Plan: * INR is therapeutic at 2.3 and will be monitored daily. (7) Hypertension: Code(s): I10 - Essential (primary) hypertension Status: Acute Assessment and Plan: * Blood pressures were reviewed and they have been running a bit soft at times. * For now will continue with her metoprolol but hold lisinopril. * Continue to monitor blood pressures closely.
--- NOTE | 2020-03-27 14:19 | PM.IMPN ---
Progress Note: A&P Assessment and Plan (1) Sepsis: Code(s): A41.9 - Sepsis, unspecified organism Status: Acute Assessment and Plan: Present on admission and supported by tachycardia, tachypnea, and organ dysfunction due to sepsis from COVID-19, with a qSOFA score of 2 and a SOFA score of 7. Lactic acid levels within normal limits, blood cultures have been obtained and are pending. 03/27/20 14:19 patient is a 45-year-old female state history of stroke presented emergency department with shortness of breath and hypoxic patient is being expose to COVID-19 as her is positive and concerned that patient have COVID-19 has been tested and positive, patient was placed in isolation and on Airvo which did improve patient oxygen saturation, today spoke with the development associate patient is hypoxic and on Airvo, and dexamethasone suggesting the patient will benefit from convalscent plasma therapy for COVID-19, on 03/27 Dr. 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 Acuña patient is on convalscent plasma therapy and will Continue dexamethasone and Remdesivir. Both started 03/25 Continue anticoagulation, will continue to monitor and further recommendation to follow (2) Acute respiratory failure with hypoxia: Code(s): J96.01 - Acute respiratory failure with hypoxia Status: Acute Assessment and Plan: Secondary to COVID pneumonia. Continue Airvo therapy. (3) Pneumonia due to COVID-19 virus: Code(s): U07.1 - COVID-19; J12.89 - Other viral pneumonia Status: Acute Assessment and Plan: She has been started remdesivir and dexamethasone per protocol. Continue contact, droplet, airborne isolation. (4) Elevated troponin: Code(s): R79.89 - Other specified abnormal findings of blood chemistry Status: Acute Assessment and Plan: Likely these are elevated in the setting of hypoxia as she is having no chest pain. Continue to trend to rule out significant jump, and monitor on telemetry overnight. Obtain echocardiogram. (5) Renal failure: Code(s): N19 - Unspecified kidney failure Status: Acute Assessment and Plan: Patient denies history of renal failure, and I suspect this is secondary to infection from COVID pneumonia. May also be a component of dehydration due to insensible losses from fevers. Cautious IV fluid rehydration overnight only, to avoid volume overload. 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 (7) Hypertension: Code(s): I10 - Essential (primary) hypertension Status: Acute Assessment and Plan: Blood pressures were reviewed and they have been running a bit soft at times. For now will continue with her metoprolol but hold lisinopril. Continue to monitor blood pressures closely. Subjective Date/time seen: 03/27/20 14:19 patient is a 45-year-old female state history of stroke presented emergency department with shortness of breath and hypoxic patient is being expose to COVID-19 as her is positive and concerned that patient have COVID-19 has been tested and positive, patient was placed in isolation and on Airvo which did improve p
--- NOTE | 2020-03-27 16:05 | ECHO_ITS ---
Patient Info Name: Nadia Yang Age: 45 years : 1975 Gender: Female Ht: 60 in Wt: 289 lbs BSA: 2.45 m2 HR: 80 bpm BP: 94 / 55 mmHg Heart Rhythm: Sinus Rhythm Technical Quality: Good Exam Date: 03/27/2020 12:13 PM Exam Location: [facility] Patient Status: Inpatient Admit Date: 03/25/2020 Staff Ordering Physician: Zakia Palomares PA-C Personnel Interviewer: Foreign Gracia RDCS Attending Provider: Anisha Fontana MD Referring Physician: Marielle RUGGIERO; Exam Type: CA echo doppler color flow Study Info Indications R06.02 - Shortness of breath Complete two-dimensional, color flow and Doppler transthoracic echocardiogram is performed. History/Risk Factors Covid-19 Positive; HTN, Acute respiratory failure, elevated trops. Summary 1. Complete two-dimensional, color flow and Doppler transthoracic echocardiogram is performed. 2. Left ventricular chamber dimension is normal. 3. Left ventricular systolic function is hyperdynamic, estimated at >70%. 4. There is mildly increased left ventricular wall thickness. 5. The left ventricular diastolic function is abnormal. 6. Left atrial chamber dimension is mildly enlarged. 7. There is mild aortic valve regurgitation. Left Ventricle Left ventricular chamber dimension is normal. Left ventricular systolic function is hyperdynamic, estimated at >70%. There is mildly increased left ventricular wall thickness. The left ventricular diastolic function is abnormal. Right Ventricle Right ventricular chamber dimension is normal. Right ventricular systolic function is normal. Left Atria Left atrial chamber dimension is mildly enlarged. Right Atria Right atrial chamber dimension is normal. Atrial Septum Intact interatrial septum visualized by color flow imaging. Aortic Valve The aortic valve is trileaflet. There is no aortic valve sclerosis. There is no aortic valve stenosis. There is mild aortic valve regurgitation. Pulmonic Valve The pulmonic valve is normal. There is no pulmonic valve stenosis. There is trace pulmonic regurgitation. Mitral Valve The mitral valve has normal leaflets. There is no mitral valve stenosis. There is trace mitral valve regurgitation. Tricuspid Valve The tricuspid valve leaflets are normal. There is no significant tricuspid valve stenosis. There is trace tricuspid valve regurgitation. Pericardium/Pleural The pericardium appears normal. There is trivial pericardial effusion. Inferior Vena Cava Dilated inferior vena cava with <50% collapse upon inspiration consistent with elevated right atrial pressure, 15 mmHg. Aorta The aortic root size at the sinus of Valsalva is normal. The prox ascending aorta size is normal. Left Ventricular Outflow Tract Name Value Normal LVOT 2D LVOT Diameter 2.4 cm LVOT Doppler LVOT Peak Velocity 132 cm/s LVOT Peak Gradient 7 mmHg LVOT Mean Gradient 4 mmHg LVOT VTI 25 cm LVOT VTI/AV VTI Ratio 0.8
[2020-03-27] MEDS: FENTANYL 2,500MCG/NS250ML(*CRX 2,500 MCG/250 ML BAG 20 MCG IV CONT (16:29)
[2020-03-27] MEDS: ATORVASTATIN 20 MG TABLET PO (20:03)
[2020-03-28] VITALS (51 sets, daily range): BP systolic 91–123; BP diastolic 59–75; PULSE 48–92; RESP 17–30; TEMP 35.8–36.5; O2SAT 88–100
[2020-03-28] MEDS: PROPOFOL IV EMULSION 100 ML 39.5 MG IV CONT ×3 (01:17→05:53)
[2020-03-28 05:01] LABS: Alveolar/Arterial O2 Gradient 457.9 mmHg; Arterial Blood Gas PEEP 12 cmH2O; Arterial Blood Gas Tidal Volume 400 ml; Arterial Blood Gas Vent Mode CMV; Arterial Blood Gas Ventilator rate 30 /MIN; Carboxyhemoglobin 0.3 % THb (0-2.0); Device VENTILATOR; Fractional Inspired Oxygen 80 %; HCO3 ABG 25.1 mEq/l (22.0-26.0); Methemoglobin ABG 0.3 %THb (0-1.5); Modified Allen's Test Pass; Oxygen Content ABG 13.2 %vol (16.0-22.0); Oxygen Saturation ABG 93.3 % (95.0-100.0); Oxyhemoglobin 91.9 % THb (90.0-100.0); PCO2 ABG 42.7 mmHg (35.0-45.0); PO2 ABG 67.7 mmHg (80.0-100.0); PO2 FiO2 Ratio Arterial Blood 0.85 %; Reduced Hemoglobin 7.5 %THb (0-5.0); Site Drawn LEFT RADIAL; Total Hemoglobin 10.2 g/dL (12.0-18.0); pH ABG 7.387 (7.350-7.450)
[2020-03-28] MEDS: FENTANYL 2,500MCG/NS250ML(*CRX 2,500 MCG/250 ML BAG 20 MCG IV CONT ×2 (05:26→15:38)
[2020-03-28] MEDS: CENTRAL LINE FLUSH 10 ML IV PUSH ×3 (05:29→21:03)
[2020-03-28 05:47] LABS: Hematocrit 29.7 % (37.0-47.0); Hemoglobin 9.1 g/dL (12.0-15.0); Mean Corpuscular HGB Conc 30.6 g/dl (32-36); Mean Corpuscular Volume 78.4 fl (80-100); Mean Platelet Volume 10.1 fl (7.4-10.4); Platelet Count Result 210 k/mm3 (150-375); Red Blood Count 3.79 M/mm3 (4.2-5.4); Red Cell Distribution Width 17.5 % (11.5-14.5); White Blood Count 6.9 K/mm3 (4.5-10.0)
[2020-03-28 06:10] LABS: Alanine Aminotransferase 33 U/L (4-35); Albumin Level 2.8 g/dL (3.5-5.1); Alkaline Phosphatase 71 U/L (38-126); Anion Gap 4 mmol/L (8-16); Aspartate Amino Transferase 41 U/L (14-36); Bilirubin,Total 0.4 mg/dL (0.2-1.3); Blood Urea Nitrogen 25 mg/dL (7-17); Calcium 8.2 mg/dL (8.4-10.2); Carbon Dioxide 27 mmol/L (22-30); Chloride 103 mmol/L (98-107); Estimated CRCL calculation 96 ml/min; Estimated Glomerular Filt Rate 59; Glucose 110 mg/dL (65-105); Lactate Dehydrogenase 1197 U/L (313-618); Magnesium 2.5 mg/dL (1.6-2.3); Potassium 3.9 mmol/L (3.4-5.0); Sodium 134 mmol/L (137-145)
[2020-03-28 06:38] LABS: CRP 14.4 mg/dL (<1.0)
[2020-03-28] MEDS: PROPOFOL IV EMULSION 100 ML 35.5 MG IV CONT (08:17)
[2020-03-28] MEDS: DEXAMETHASONE SOD PHOS INJ 4 MG/ML VIAL 6 MG IV PUSH (08:21)
[2020-03-28] MEDS: PANTOPRAZOLE SODIUM IV 40 MG VIAL IV PUSH (08:22)
[2020-03-28] MEDS: ALBUTEROL SULFATE NEB 2.5 MG/0.5 ML INH 15 MG INHALATION (08:23)
--- NOTE | 2020-03-28 09:22 | WPDINTPN ---
Progress Note: A&P Assessment and Plan (1) Acute respiratory failure with hypoxia: Code(s): J96.01 - Acute respiratory failure with hypoxia Status: Acute Assessment and Plan: Acute Respiratory failure secondary to COVID-19 pneumonia. 03/25- patient was on 8 L nasal cannula on admission 03/26- hypoxia worsened and patient was on AirVo. Later in the evening patient was placed on BiPAP due to continued worsening of hypoxia and was given Lasix. 03/27- Patient required to be intubated - patient on CMV mode of ventilation with high peak pressures, not adequately receiving her tidal volume, O2 sats 90-92%, patient had a peep of 12 and 80% FiO2 - switched to pressure control ventilation, increased peep to 14 - patient with expiratory wheeze, ordered in dose of continues nebs x1 and will place patient on bronchodilators - chest x-ray and ABGs reviewed - will repeat ABGs this afternoon - continue low tidal volume strategy to prevent volutrauma - patient sedated with fentanyl, Versed, propofol. Also on Nimbex for paralysis - patient oxygenating adequately, will hold off prone positioning for n - echocardiogram showed EF of 70%, diastolic function is abnormal. (2) Pneumonia due to COVID-19 virus: Code(s): U07.1 - COVID-19; J12.89 - Other viral pneumonia Status: Acute Assessment and Plan: SARS-CoV-2 PCR positive -Patient is in Airborne, Droplet and Contact Isolation -Continue dexamethasone and Remdesivir. Both started 03/25 - And inflammatory markers reviewed, LDH in ferritin trending down, CRP is increased - patient received a unit of convalescent COVID-19 plasma on 03/27/2020 (3) Renal failure: Code(s): N19 - Unspecified kidney failure Status: Acute Assessment and Plan: patient presented with elevated creatinine of 1.7 and was assumed to be secondary to dehydration. - patient received IV fluids yesterday, received Lasix due to worsening hypoxia. - Creatinine down to 1.0 this morning, urine output has been adequate, will continue to monitor renal function, electrolytes and urine output- (4) Cerebrovascular accident: Onset Date: ~2017 Code(s): I63.9 - Cerebral infarction, unspecified Status: Acute Assessment and Plan: history of CVA although details are not available this time - patient has been on Coumadin INR is supratherapeutic, will check INR daily, INR is within therapeutic range will start therapeutic Lovenox or heparin infusion - continue statin (5) Hypertension: Code(s): I10 - Essential (primary) hypertension Status: Acute Assessment and Plan: blood pressure is on the softer side now after intubation and sedation will hold antihypertensives (6) DVT prophylaxis: Code(s): Z29.9 - Encounter for prophylactic measures, unspecified Status: Acute Assessment and Plan: DVT prophylaxis: supratherapeutic INR as patient has been on Coumadin at home. once the INR is therapeutic start heparin infusion or therapeutic Lovenox (7) Dietary counseling and surveillance: Code(s): Z71.3 - Dietary counseling and surveillance Status: Acute Assessment and Plan: stress ulcer prophylaxis: Protonix - will start trickle tube feeds to maintain intestinal integrity Additional Plan Discussed with Morgan, her and updated him with patient's condition and plan of care. I updated him on her condition and plan of care. Also updated him that she received convalescent COVID-19 plasma, She is also on Remdesivir and dexamethasone. I answered all questions Code Status - full code Total Critical Care Time - 41 minutes Due to a high probability of clinically significant, life threatening deterioration, the patient required my highest level of preparedness to intervene emergently and I personally spent this critical care time directly and personally managing the patient. This critical ca
[2020-03-28] MEDS: PROPOFOL IV EMULSION 100 ML 23.7 MG IV CONT (10:26)
[2020-03-28 10:59] LABS: Prothrombin Time 54.2 Seconds (11.1-14.7)
[2020-03-28 11:00] LABS: Partial Thromboplastin Time 75.9 SECONDS (22.3-36.8)
[2020-03-28 11:09] LABS: INR 6.2
--- NOTE | 2020-03-28 11:15 | PCDIET ---
Nutrition Follow-Up Complete: Nutrition Diagnosis: Inadequate oral intake related to oral intubation as evidenced by NPO status. Nutrition Goal: Patient to meet estimated nutritional needs. Goal in progress. MD ordered to start trickle feedings today. Recommend 10mL/hr Vital 1.2 and advancing to 20mL/hr after 8 hours, if tolerated. Will recommend continued advancement over next 24-48 hours based on Propofol dosing. Last recorded weight is 136.6 kg which is increased from last review. I/O noted. Bowel Motility: Last documented BM on 03/26/20. Labs Reviewed: Hgb (9.1), Hct (29.7), BUN (25), Na (134), Alb (2.8), Jim Ca (9.16) Meds Noted: Nimbex, Decadron, Fentanyl, Versed, Levophed, Protonix, Remdesivir, Propofol (rate of 39.5mL/hr provides 1042kcal per 24 hours) Additional Notes: No documented skin breakdown. Will continue to monitor with same goal. Nutrition Monitoring and Evaluation: Follow up every Friday/Friday. Follow daily in ICU rounds.
[2020-03-28 12:32] LABS: Alveolar/Arterial O2 Gradient 266.8 mmHg; Base Excess ABG -1.7 mEq/l (+/-2.0); Fractional Inspired Oxygen 80 %; HCO3 ABG 20.8 mEq/l (22.0-26.0); Oxygen Content ABG 15.4 %vol (16.0-22.0); Oxygen Saturation ABG 99.7 % (95.0-100.0); Oxyhemoglobin 98.4 % THb (90.0-100.0); PCO2 ABG 27.9 mmHg (35.0-45.0); PO2 ABG 274.3 mmHg (80.0-100.0); PO2 FiO2 Ratio Arterial Blood 3.43 %; Total Hemoglobin 10.6 g/dL (12.0-18.0)
[2020-03-28 12:34] LABS: Arterial Blood Gas Vent Mode PRESSURE CONTROL; Arterial Blood Gas Ventilator rate 30 /MIN; Device VENTILATOR; Site Drawn RIGHT BRACHIAL
[2020-03-28 12:35] LABS: Arterial Blood Gas PEEP 14 cmH2O
[2020-03-28] MEDS: ALBUTEROL SULFATE NEB 2.5 MG/0.5 ML INH INHALATION ×2 (13:55→20:19)
[2020-03-28] MEDS: IPRATROPIUM BR 0.02% INH SOLN 0.5 MG/2.5 ML VIAL INHALATION ×2 (13:55→20:19)
[2020-03-28] MEDS: REMDESIVIR 100 MG/NS 250 ML 100 MG/250 ML BAG 250 MG IVPB (14:07)
--- NOTE | 2020-03-28 15:49 | PM.IMPN ---
Progress Note: A&P Assessment and Plan (1) Sepsis: Code(s): A41.9 - Sepsis, unspecified organism Status: Acute Assessment and Plan: Present on admission and supported by tachycardia, tachypnea, and organ dysfunction due to sepsis from COVID-19, with a qSOFA score of 2 and a SOFA score of 7. Lactic acid levels within normal limits, blood cultures have been obtained and are pending. 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 Rapp patient is on convalscent plasma therapy and will Continue dexamethasone 4/10 and Remdesivir 4/5 both started on 03/25 . Patient is requiring with fentanyl, Versed, propofol sedation. Also on Nimbex for paralysis, patient is on Coumadin for anticoagulation however INR is supratherapeutic will hold, will continue to monitor and further recommendation to follow (2) Acute respiratory failure with hypoxia: Code(s): J96.01 - Acute respiratory failure with hypoxia Status: Acute Assessment and Plan: Secondary to COVID pneumonia. Continue Airvo therapy. (3) Pneumonia due to COVID-19 virus: Code(s): U07.1 - COVID-19; J12.89 - Other viral pneumonia Status: Acute Assessment and Plan: She has been started remdesivir and dexamethasone per protocol. Continue contact, droplet, airborne isolation. (4) Elevated troponin: Code(s): R79.89 - Other specified abnormal findings of blood chemistry Status: Acute Assessment and Plan: Likely these are elevated in the setting of hypoxia as she is having no chest pain. Continue to trend to rule out significant jump, and monitor on telemetry overnight. Obtain echocardiogram. (5) Renal failure: Code(s): N19 - Unspecified kidney failure Status: Acute Assessment and Plan: Patient denies history of renal failure, and I suspect this is secondary to infection from COVID pneumonia. May also be a component of dehydration due to insensible losses from fevers. Cautious IV fluid rehydration overnight only, to avoid volume overload. 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 (7) Hypertension: Code(s): I10 - Essential (primary) hypertension Status: Acute Assessment and Plan: Blood pressures were reviewed and they have been running a bit soft at times. For now will continue with her metoprolol but hold lisinopril. Continue to monitor blood pressures closely. Subjective Date/time seen: 03/28/20 15:49 patient is a 45-year-old female state history of stroke presented emergency department with shortness of breath and hypoxic patient is being expose t
[2020-03-28 20:41] LABS: Alveolar/Arterial O2 Gradient 217.2 mmHg; Base Excess ABG 0.2 mEq/l (+/-2.0); Device VENTILATOR; Fractional Inspired Oxygen 50 %; HCO3 ABG 26.5 mEq/l (22.0-26.0); Modified Allen's Test Pass; Oxygen Content ABG 14.2 %vol (16.0-22.0); Oxygen Saturation ABG 95.3 % (95.0-100.0); Oxyhemoglobin 93.7 % THb (90.0-100.0); PCO2 ABG 50.7 mmHg (35.0-45.0); PO2 ABG 82.3 mmHg (80.0-100.0); PO2 FiO2 Ratio Arterial Blood 1.65 %; Site Drawn LEFT RADIAL; Total Hemoglobin 10.7 g/dL (12.0-18.0); pH ABG 7.336 (7.350-7.450)
[2020-03-28 20:42] LABS: Arterial Blood Gas PEEP 14 cmH2O; Arterial Blood Gas Vent Mode PRESSURE CONTROL; Arterial Blood Gas Ventilator rate 26 /MIN
[2020-03-28] MEDS: ATORVASTATIN 20 MG TABLET PO (20:45)
[2020-03-28] MEDS: PROPOFOL IV EMULSION 100 ML 7.9 MG IV CONT (23:01)
[2020-03-29] VITALS (31 sets, daily range): BP systolic 115–139; BP diastolic 58–84; PULSE 65–95; RESP 17–30; TEMP 36.4–37.1; O2SAT 88–96
[2020-03-29] MEDS: ALBUTEROL SULFATE NEB 2.5 MG/0.5 ML INH INHALATION ×4 (01:04→19:32)
[2020-03-29] MEDS: IPRATROPIUM BR 0.02% INH SOLN 0.5 MG/2.5 ML VIAL INHALATION ×4 (01:04→19:32)
[2020-03-29 04:03] LABS: Hematocrit 30.5 % (37.0-47.0); Hemoglobin 9.4 g/dL (12.0-15.0); Mean Corpuscular HGB Conc 30.8 g/dl (32-36); Mean Platelet Volume 10.1 fl (7.4-10.4); Platelet Count Result 235 k/mm3 (150-375); Red Blood Count 3.91 M/mm3 (4.2-5.4); Red Cell Distribution Width 17.4 % (11.5-14.5); White Blood Count 8.7 K/mm3 (4.5-10.0)
[2020-03-29 04:16] LABS: INR 4.4; Prothrombin Time 41.4 Seconds (11.1-14.7)
[2020-03-29 04:17] LABS: Alanine Aminotransferase 30 U/L (4-35); Albumin Level 2.9 g/dL (3.5-5.1); Alkaline Phosphatase 68 U/L (38-126); Anion Gap 3 mmol/L (8-16); Aspartate Amino Transferase 30 U/L (14-36); Bilirubin,Total 0.4 mg/dL (0.2-1.3); Blood Urea Nitrogen 26 mg/dL (7-17); Calcium 8.5 mg/dL (8.4-10.2); Carbon Dioxide 29 mmol/L (22-30); Chloride 104 mmol/L (98-107); Estimated CRCL calculation 96 ml/min; Estimated Glomerular Filt Rate 59; Glucose 116 mg/dL (65-105); Lactate Dehydrogenase 903 U/L (313-618); Magnesium 2.5 mg/dL (1.6-2.3); Sodium 136 mmol/L (137-145)
[2020-03-29 04:18] LABS: D Dimer 0.54 ug/mL (<0.48)
[2020-03-29 04:44] LABS: Alveolar/Arterial O2 Gradient 210.4 mmHg; Base Excess ABG 1.2 mEq/l (+/-2.0); Carboxyhemoglobin 0.3 % THb (0-2.0); Device VENTILATOR; Fractional Inspired Oxygen 50 %; HCO3 ABG 26.6 mEq/l (22.0-26.0); Methemoglobin ABG 0.3 %THb (0-1.5); Modified Allen's Test Pass; Oxygen Content ABG 14.1 %vol (16.0-22.0); Oxygen Saturation ABG 97.1 % (95.0-100.0); Oxyhemoglobin 95.7 % THb (90.0-100.0); PCO2 ABG 45.6 mmHg (35.0-45.0); PO2 ABG 94.8 mmHg (80.0-100.0); Reduced Hemoglobin 3.7 %THb (0-5.0); Site Drawn LEFT RADIAL; Total Hemoglobin 10.4 g/dL (12.0-18.0); pH ABG 7.383 (7.350-7.450)
[2020-03-29 04:45] LABS: Arterial Blood Gas PEEP 14 cmH2O; Arterial Blood Gas Vent Mode PRESSURE CONTROL; Arterial Blood Gas Ventilator rate 26 /MIN; Peak Inspiratory Pressure 24 cmH2O
[2020-03-29] MEDS: FENTANYL 2,500MCG/NS250ML(*CRX 2,500 MCG/250 ML BAG 20 MCG IV CONT ×2 (04:45→17:41)
[2020-03-29] MEDS: CENTRAL LINE FLUSH 10 ML IV PUSH ×3 (05:27→21:02)
--- NOTE | 2020-03-29 07:52 | WPDINTPN ---
Progress Note: A&P Assessment and Plan (1) Acute respiratory failure with hypoxia: Code(s): J96.01 - Acute respiratory failure with hypoxia Status: Acute Assessment and Plan: Acute Respiratory failure secondary to COVID-19 pneumonia. 03/25- patient was on 8 L nasal cannula on admission 03/26- hypoxia worsened and patient was on AirVo. Later in the evening patient was placed on BiPAP due to continued worsening of hypoxia and was given Lasix. 03/27- Patient required to be intubated - patient on pressure control mode of ventilation, peep of 14, PO2 of 60%. placed patient back on CMV mode of ventilation to provide low tidal volume strategy - chest x-ray and ABGs reviewed - continue low tidal volume strategy to prevent volutrauma - patient sedated with fentanyl, Versed, propofol. Also on Nimbex for paralysis - patient oxygenating adequately, will hold off prone positioning for n - echocardiogram showed EF of 70%, diastolic function is abnormal. - Continue bronchodilators (2) Pneumonia due to COVID-19 virus: Code(s): U07.1 - COVID-19; J12.89 - Other viral pneumonia Status: Acute Assessment and Plan: SARS-CoV-2 PCR positive -Patient is in Airborne, Droplet and Contact Isolation -Continue dexamethasone and Remdesivir. Both started 03/25 - And inflammatory markers reviewed, LDH, ferritin, CRP trending down, D-dimer also has trended down - patient received a unit of convalescent COVID-19 plasma on 03/27/2020 (3) Renal failure: Code(s): N19 - Unspecified kidney failure Status: Acute Assessment and Plan: RESOLVED: patient presented with elevated creatinine of 1.7 and was assumed to be secondary to dehydration. - patient received IV fluids yesterday, received Lasix due to worsening hypoxia. - Creatinine down to 1.0 this morning, urine output has been adequate, will continue to monitor renal function, electrolytes and urine output- (4) Cerebrovascular accident: Onset Date: ~2017 Code(s): I63.9 - Cerebral infarction, unspecified Status: Acute Assessment and Plan: history of CVA although details are not available this time - patient has been on Coumadin INR is supratherapeutic, will check INR daily, INR is within therapeutic range will start therapeutic Lovenox or heparin infusion - continue statin (5) Hypertension: Code(s): I10 - Essential (primary) hypertension Status: Acute Assessment and Plan: blood pressure is on the softer side now after intubation and sedation will hold antihypertensives (6) DVT prophylaxis: Code(s): Z29.9 - Encounter for prophylactic measures, unspecified Status: Acute Assessment and Plan: DVT prophylaxis: supratherapeutic INR as patient has been on Coumadin at home. once the INR is therapeutic start heparin infusion or therapeutic Lovenox (7) Dietary counseling and surveillance: Code(s): Z71.3 - Dietary counseling and surveillance Status: Acute Assessment and Plan: stress ulcer prophylaxis: Protonix - will gradually increase tube feeds to goal Additional Plan Discussed with Morgan, her and updated him with patient's condition and plan of care. I answered all questions Code Status - full code Total Critical Care Time - 36 minutes Due to a high probability of clinically significant, life threatening deterioration, the patient required my highest level of preparedness to intervene emergently and I personally spent this critical care time directly and personally managing the patient. This critical care time included obtaining a history; examining the patient; pulse oximetry; ordering and review of studies; arranging urgent treatment with development of a management plan; evaluation of patient's response to treatment; frequent reassessment; and discussions with other providers. It was exclusive of separately billable procedures and treati
[2020-03-29] MEDS: PANTOPRAZOLE SODIUM IV 40 MG VIAL IV PUSH (08:01)
[2020-03-29] MEDS: DEXAMETHASONE SOD PHOS INJ 4 MG/ML VIAL 6 MG IV PUSH (08:02)
[2020-03-29] MEDS: PROPOFOL IV EMULSION 100 ML 7.9 MG IV CONT (09:56)
--- NOTE | 2020-03-29 10:53 | PCDIET ---
ICU Rounding Note: Patient tolerating Vital 1.2 at 20mL/hr. MD ordered advancement toward goal of 40mL/hr today. Ultimate goal recommended will be 55mL/hr Vital 1.2 for 1452kcal (1660kcal with Propofol at current rate) and 90g protein over 22 hours/day. Last recorded weight is 140kg which is increased from last review. +I/O. Bowel Motility: Last documented BM on 03/25/20. If medically appropriate, may consider medication to promote BM. Labs Reviewed: Hgb (9.1), Hct (29.7), BUN (25), Na (134), Alb (2.8), Jim Ca (9.16) Meds Noted: Albuterol, Atrovent, Remdesivir, Versed, Decadron, Levophed, Fentanyl, Protonix, Propofol (rate of 7.9mL/hr provides 208kcal per 24 hours) Additional Notes: No documented skin breakdown. Following daily in ICU rounds. Assessing/reassessing every Friday/Friday.
[2020-03-29] MEDS: REMDESIVIR 100 MG/NS 250 ML 100 MG/250 ML BAG 250 MG IVPB (14:26)
--- NOTE | 2020-03-29 16:13 | PM.IMPN ---
Progress Note: A&P Assessment and Plan (1) Sepsis: Code(s): A41.9 - Sepsis, unspecified organism Status: Acute Assessment and Plan: Present on admission and supported by tachycardia, tachypnea, and organ dysfunction due to sepsis from COVID-19, with a qSOFA score of 2 and a SOFA score of 7. Lactic acid levels within normal limits, blood cultures have been obtained and are pending. 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 Rapp patient is on convalscent plasma therapy and will Continue dexamethasone 4/10 and Remdesivir 4/5 both started on 03/25 . Patient is requiring with fentanyl, Versed, propofol sedation. Also on Nimbex for paralysis, patient is on Coumadin for anticoagulation however INR is supratherapeutic will hold, will continue to monitor and further recommendation to follow, 03/29 spoke with scientific process operator patient is still sedated and on Nimbex for paralysis however her FiO2 has improved and now she is requiring 50% compared to 70% otherwise there is no significant, patient is on vent and sedated unable to provide any review of symptoms. (2) Acute respiratory failure with hypoxia: Code(s): J96.01 - Acute respiratory failure with hypoxia Status: Acute Assessment and Plan: Secondary to COVID pneumonia. Continue Airvo therapy. (3) Pneumonia due to COVID-19 virus: Code(s): U07.1 - COVID-19; J12.89 - Other viral pneumonia Status: Acute Assessment and Plan: She has been started remdesivir and dexamethasone per protocol. Continue contact, droplet, airborne isolation. (4) Elevated troponin: Code(s): R79.89 - Other specified abnormal findings of blood chemistry Status: Acute Assessment and Plan: Likely these are elevated in the setting of hypoxia as she is having no chest pain. Continue to trend to rule out significant jump, and monitor on telemetry overnight. Obtain echocardiogram. (5) Renal failure: Code(s): N19 - Unspecified kidney failure Status: Acute Assessment and Plan: Patient denies history of renal failure, and I suspect this is secondary to infection from COVID pneumonia. May also be a component of dehydration due to insensible losses from fevers. Cautious IV fluid rehydration overnight only, to avoid volume overload. 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 (7) Hypertension: Code(s): I10 - Essential (primary) hypertension Status: Acute Assessment and Plan: Blood pressures were reviewed and they have been running a bit soft at times. For now will continue with her metoprolol but hold lisinopril. Continue to monitor blood pressures closely.
[2020-03-29] MEDS: PROPOFOL IV EMULSION 100 ML 15.8 MG IV CONT (18:33)
[2020-03-29] MEDS: ATORVASTATIN 20 MG TABLET PO (20:23)
[2020-03-29] MEDS: PROPOFOL IV EMULSION 100 ML 23.7 MG IV CONT (22:58)
[2020-03-30] VITALS (35 sets, daily range): BP systolic 81–123; BP diastolic 51–77; PULSE 80–134; RESP 16–30; TEMP 36.9–38.8; O2SAT 90–99
[2020-03-30] MEDS: ALBUTEROL SULFATE NEB 2.5 MG/0.5 ML INH INHALATION ×4 (01:54→21:08)
[2020-03-30] MEDS: IPRATROPIUM BR 0.02% INH SOLN 0.5 MG/2.5 ML VIAL INHALATION ×4 (01:55→21:09)
[2020-03-30] MEDS: PROPOFOL IV EMULSION 100 ML 27.6 MG IV CONT ×3 (02:51→13:07)
[2020-03-30 04:12] LABS: Hematocrit 30.5 % (37.0-47.0); Hemoglobin 9.5 g/dL (12.0-15.0); Mean Corpuscular HGB Conc 31.1 g/dl (32-36); Mean Corpuscular Hemoglobin 24.6 pg (26-34); Mean Platelet Volume 9.9 fl (7.4-10.4); Platelet Count Result 269 k/mm3 (150-375); Red Blood Count 3.86 M/mm3 (4.2-5.4); Red Cell Distribution Width 17.7 % (11.5-14.5); White Blood Count 10.5 K/mm3 (4.5-10.0)
[2020-03-30 04:24] LABS: INR 3.1; Prothrombin Time 31.5 Seconds (11.1-14.7)
[2020-03-30 04:33] LABS: Alanine Aminotransferase 32 U/L (4-35); Albumin Level 2.9 g/dL (3.5-5.1); Alkaline Phosphatase 71 U/L (38-126); Anion Gap 2 mmol/L (8-16); Aspartate Amino Transferase 33 U/L (14-36); Bilirubin,Total 0.4 mg/dL (0.2-1.3); Blood Urea Nitrogen 30 mg/dL (7-17); CRP 7.9 mg/dL (<1.0); Calcium 8.6 mg/dL (8.4-10.2); Carbon Dioxide 30 mmol/L (22-30); Chloride 105 mmol/L (98-107); Estimated CRCL calculation 107 ml/min; Estimated Glomerular Filt Rate > 60; Glucose 111 mg/dL (65-105); Lactate Dehydrogenase 828 U/L (313-618); Magnesium 2.3 mg/dL (1.6-2.3); Potassium 4.1 mmol/L (3.4-5.0); Sodium 137 mmol/L (137-145)
[2020-03-30 04:41] LABS: Alveolar/Arterial O2 Gradient 328.3 mmHg; Base Excess ABG 1.2 mEq/l (+/-2.0); Carboxyhemoglobin 0.1 % THb (0-2.0); Device VENTILATOR; Fractional Inspired Oxygen 65 %; HCO3 ABG 27.1 mEq/l (22.0-26.0); Methemoglobin ABG 0.3 %THb (0-1.5); Modified Allen's Test Pass; Oxygen Content ABG 13.8 %vol (16.0-22.0); Oxygen Saturation ABG 95.6 % (95.0-100.0); Oxyhemoglobin 93.5 % THb (90.0-100.0); PCO2 ABG 48.8 mmHg (35.0-45.0); PO2 ABG 82.1 mmHg (80.0-100.0); PO2 FiO2 Ratio Arterial Blood 1.26 %; Reduced Hemoglobin 6.1 %THb (0-5.0); Site Drawn LEFT RADIAL; Total Hemoglobin 10.4 g/dL (12.0-18.0); pH ABG 7.362 (7.350-7.450)
[2020-03-30 04:43] LABS: Arterial Blood Gas PEEP 14 cmH2O; Arterial Blood Gas Vent Mode PRESSURE CONTROL; Arterial Blood Gas Ventilator rate 26 /MIN; Peak Inspiratory Pressure 24 cmH2O
[2020-03-30] MEDS: FENTANYL 2,500MCG/NS250ML(*CRX 2,500 MCG/250 ML BAG 20 MCG IV CONT ×2 (06:36→20:12)
[2020-03-30] MEDS: CENTRAL LINE FLUSH 10 ML IV PUSH ×3 (06:36→21:04)
[2020-03-30] MEDS: DORNASE ALFA INH SOLN 1 MG/ML 2.5 ML AMP 2.5 MG INHALATION ×2 (08:31→21:09)
[2020-03-30] MEDS: DEXAMETHASONE SOD PHOS INJ 4 MG/ML VIAL 6 MG IV PUSH (08:47)
[2020-03-30] MEDS: PANTOPRAZOLE SODIUM IV 40 MG VIAL IV PUSH (08:47)
[2020-03-30] MEDS: CISATRACURIUM BESYLATE 20 MG/10 ML VIAL 21.1 MG IV PUSH (09:24)
[2020-03-30] MEDS: PROPOFOL IV EMULSION 100 ML 7.9 MG IV CONT (09:45)
--- NOTE | 2020-03-30 11:17 | PCDIET ---
ICU Rounding Note: Patient tolerating Vital 1.2 at 40mL/hr. Residuals 100mL and below. MD ordered to keep tube feeding at 40mL/hr today. Last recorded weight is 140.4kg which is stable. Bowel Motility: Last documented BM on 03/25/20. Discussed during rounds. No new orders at this time. Labs Reviewed: Hgb (9.5), Hct (30.5), Glu (111), BUN (30) Meds Noted: Albuterol, Decadron, Fentanyl, Atrovent, Versed, Protonix, Propofol (rate of 27.6mL/hr provides 728kcal per 24 hours) Additional Notes: No documented skin breakdown. Following daily in ICU rounds. Assessing/reassessing every Friday/Friday.
[2020-03-30] MEDS: PROPOFOL IV EMULSION 100 ML 31.6 MG IV CONT ×3 (13:09→20:09)
--- NOTE | 2020-03-30 14:06 | WPDINTPN ---
Progress Note: A&P Assessment and Plan (1) Acute respiratory failure with hypoxia: Code(s): J96.01 - Acute respiratory failure with hypoxia Status: Acute Assessment and Plan: Acute Respiratory failure secondary to COVID-19 pneumonia. 03/25- patient was on 8 L nasal cannula on admission 03/26- hypoxia worsened and patient was on AirVo. Later in the evening patient was placed on BiPAP due to continued worsening of hypoxia and was given Lasix. 03/27- Patient required to be intubated - patient on pressure control mode of ventilation, peep of 14, PO2 of 65%. patient was dyssynchronous with the ventilator this morning, the ventilator was also alarming due to some occlusion. Filters which changed on the ventilator and patient was paralyzed with Nimbex, with significant improvement in her O2 sats once she was more synchronous with the ventilator. Patient is requiring increasing amounts of sedation with fentanyl, Versed and propofol infusion. - Was given a dose of continues nebulizer treatment with Xopenex - chest x-ray and ABGs reviewed - continue low tidal volume strategy to prevent volutrauma - patient sedated with fentanyl, Versed, propofol. Also on Nimbex for paralysis - echocardiogram showed EF of 70%, diastolic function is abnormal. - Continue bronchodilators (2) Pneumonia due to COVID-19 virus: Code(s): U07.1 - COVID-19; J12.89 - Other viral pneumonia Status: Acute Assessment and Plan: SARS-CoV-2 PCR positive -Patient is in Airborne, Droplet and Contact Isolation -Continue dexamethasone and Remdesivir. Both started 03/25 - And inflammatory markers reviewed, LDH, ferritin, CRP trending down, D-dimer also has trended down - patient received a unit of convalescent COVID-19 plasma on 03/27/2020 (3) Renal failure: Code(s): N19 - Unspecified kidney failure Status: Acute Assessment and Plan: RESOLVED: patient presented with elevated creatinine of 1.7 and was assumed to be secondary to dehydration. - patient received IV fluids yesterday, received Lasix due to worsening hypoxia. - Creatinine normalized, urine output has been adequate, -will continue to monitor renal function, electrolytes and urine output- (4) Cerebrovascular accident: Onset Date: ~2017 Code(s): I63.9 - Cerebral infarction, unspecified Status: Acute Assessment and Plan: history of CVA although details are not available this time - patient has been on Coumadin INR is supratherapeutic, will check INR daily, INR is within therapeutic range will start therapeutic Lovenox or heparin infusion - continue statin (5) Hypertension: Code(s): I10 - Essential (primary) hypertension Status: Acute Assessment and Plan: blood pressure is on the softer side now after intubation and sedation will hold antihypertensives (6) DVT prophylaxis: Code(s): Z29.9 - Encounter for prophylactic measures, unspecified Status: Acute Assessment and Plan: DVT prophylaxis: supratherapeutic INR as patient has been on Coumadin at home. once the INR is therapeutic start heparin infusion or therapeutic Lovenox (7) Dietary counseling and surveillance: Code(s): Z71.3 - Dietary counseling and surveillance Status: Acute Assessment and Plan: stress ulcer prophylaxis: Protonix - patient currently on tube feeds at 40 mL/hr and tolerating. Additional Plan Discussed with Patient's son, Brandon, updated with patient's condition and plan of care. I answered all questions. He was requesting for a letter from the hospital stating that his mother is in the hospital as it would be required for her work place and short-term disability. Discussed with case management who referred me to the hospitalist wild life manager, Syl who will prepare the later and fax it to the son Fax number is [phone] Code Status - full code Total Critical Care Time -
--- NOTE | 2020-03-30 15:30 | P.PNIM_ITS ---
Progress Note: A&P Assessment and Plan (1) Sepsis: Code(s): A41.9 - Sepsis, unspecified organism Status: Acute Assessment and Plan: * Present on admission and supported by tachycardia, tachypnea, and organ dysf unction due to sepsis from COVID-19, with a qSOFA score of 2 and a SOFA score of 7. * Lactic acid levels within normal limits, blood cultures have been obtained and are pending. 03/30/20 15:30 patient is a 45-year-old female state history of stroke presented emergency department with shortness of breath and hypoxic patient is being expose to COVID-19 as her is positive and concerned that patient have COVID-19 has been tested and positive, patient was placed in isolation and on Airvo which did improve patient oxygen saturation, today spoke with the reservations and ticketing agent patient is hypoxic and on Airvo, and dexamethasone suggesting the patient will benefit from convalscent plasma therapy for COVID-19, on 03/27 Dr. Acuña spoke with the patient and has agreed to receive the treatment and 1 unit dose ordered, on 03/27 website admin patient's respiratory status deteriorated and had an emergent intubation and currently on vent, patient is seen by intensive on 03/[address] Rapp patient had convalscent plasma therapy and will Continue dexamethasone and Remdesivir both started on 03/25 . Patient is requiring with fentanyl, Versed, propofol sedation. Also on Nimbex for paralysis, patient is on Coumadin for anticoagulation however INR is supratherapeutic will hold, today spoke with Dr. Rapp Nimbex was stopped however patient breathing was quite unsynchronized, patient was continued on fentanyl, Versed, and propofol and Nimbex was restarted to paralyzed to remain sedated on vent, however patient oxygen requirement as well as an inflammatory marker are improving, will continue present management, patient seen by reservations and ticketing agent and appreciate. (2) Acute respiratory failure with hypoxia: Code(s): J96.01 - Acute respiratory failure with hypoxia Status: Acute Assessment and Plan: * Secondary to COVID pneumonia. * Continue Airvo therapy. (3) Pneumonia due to COVID-19 virus: Code(s): U07.1 - COVID-19; J12.89 - Other viral pneumonia Status: Acute Assessment and Plan: * She has been started remdesivir and dexamethasone per protocol. * Continue contact, droplet, airborne isolation. (4) Elevated troponin: Code(s): R79.89 - Other specified abnormal findings of blood chemistry Status: Acute Assessment and Plan: * Likely these are elevated in the setting of hypoxia as she is having no chest pain. * Continue to trend to rule out significant jump, and monitor on telemetry overnight. * Obtain echocardiogram. (5) Renal failure: Code(s): N19 - Unspecified kidney failure Status: Acute Assessment and Plan: * Patient denies history of renal failure, and I suspect this is secondary to infection from COVID pneumonia. * May also be a component of dehydration due to insensible losses from fevers. * Cautious IV fluid rehydration overnight only, to avoid volume overload. (6) Current use of senior care anticoagulation: Code(s): Z79.01 - extermination supervisor (current) use of anticoagulants Status: Acute Assessment and Plan: * INR is therapeutic at 2.3 and will be monitored daily.
--- NOTE | 2020-03-30 15:30 | PM.IMPN ---
Progress Note: A&P Assessment and Plan (1) Sepsis: Code(s): A41.9 - Sepsis, unspecified organism Status: Acute Assessment and Plan: Present on admission and supported by tachycardia, tachypnea, and organ dysfunction due to sepsis from COVID-19, with a qSOFA score of 2 and a SOFA score of 7. Lactic acid levels within normal limits, blood cultures have been obtained and are pending. 03/30/20 15:30 patient is a 45-year-old female state history of stroke presented emergency department with shortness of breath and hypoxic patient is being expose to COVID-19 as her is positive and concerned that patient have COVID-19 has been tested and positive, patient was placed in isolation and on Airvo which did improve patient oxygen saturation, today spoke with the cinder snapper patient is hypoxic and on Airvo, and dexamethasone suggesting the patient will benefit from convalscent plasma therapy for COVID-19, on 03/27 Dr. Acuña spoke with the patient and has agreed to receive the treatment and 1 unit dose ordered, on 03/27 flight information expediter patient's respiratory status deteriorated and had an emergent intubation and currently on vent, patient is seen by intensive on 03/[address] Rapp patient had convalscent plasma therapy and will Continue dexamethasone and Remdesivir both started on 03/25 . Patient is requiring with fentanyl, Versed, propofol sedation. Also on Nimbex for paralysis, patient is on Coumadin for anticoagulation however INR is supratherapeutic will hold, today spoke with Dr. Rapp Nimbex was stopped however patient breathing was quite unsynchronized, patient was continued on fentanyl, Versed, and propofol and Nimbex was restarted to paralyzed to remain sedated on vent, however patient oxygen requirement as well as an inflammatory marker are improving, will continue present management, patient seen by cinder snapper and appreciate. (2) Acute respiratory failure with hypoxia: Code(s): J96.01 - Acute respiratory failure with hypoxia Status: Acute Assessment and Plan: Secondary to COVID pneumonia. Continue Airvo therapy. (3) Pneumonia due to COVID-19 virus: Code(s): U07.1 - COVID-19; J12.89 - Other viral pneumonia Status: Acute Assessment and Plan: She has been started remdesivir and dexamethasone per protocol. Continue contact, droplet, airborne isolation. (4) Elevated troponin: Code(s): R79.89 - Other specified abnormal findings of blood chemistry Status: Acute Assessment and Plan: Likely these are elevated in the setting of hypoxia as she is having no chest pain. Continue to trend to rule out significant jump, and monitor on telemetry overnight. Obtain echocardiogram. (5) Renal failure: Code(s): N19 - Unspecified kidney failure Status: Acute Assessment and Plan: Patient denies history of renal failure, and I suspect this is secondary to infection from COVID pneumonia. May also be a component of dehydration due to insensible losses from fevers. Cautious IV fluid rehydration overnight only, to avoid volume overload. (6) Current use of jail anticoagulation: Code(s): Z79.01 - adjunct faculty for medical terminology (current) use of anticoagulants Status: Acute Assessment and Plan: INR is therapeutic at 2.3 and will be monitored daily. (7) Hypertension: Code(s): I10 - Essential (primary) hypertension Status: Acute Assessment and Plan: Blood pressures were reviewed and they have been running a bit soft at times. For now will continue with her metoprolol but hold lisinopril. Continue to monitor blood pressures aubrey
[2020-03-30] MEDS: ATORVASTATIN 20 MG TABLET PO (20:11)
[2020-03-30] MEDS: hetaSTARCH 6%/NACL 500 ML 250 ML IV CONT (22:20)
[2020-03-31] VITALS (38 sets, daily range): BP systolic 87–125; BP diastolic 44–71; PULSE 78–99; RESP 24–25; TEMP 37.3–38; O2SAT 92–97
[2020-03-31] MEDS: NOREPINEPHRINE 8 MG/D5W 250 ML 8 MG/250 ML BAG 9.4 MG IV CONT (00:32)
[2020-03-31] MEDS: ALBUTEROL SULFATE NEB 2.5 MG/0.5 ML INH INHALATION ×4 (02:22→19:25)
[2020-03-31] MEDS: IPRATROPIUM BR 0.02% INH SOLN 0.5 MG/2.5 ML VIAL INHALATION ×4 (02:22→19:25)
[2020-03-31] MEDS: PROPOFOL IV EMULSION 100 ML 19.7 MG IV CONT (03:05)
[2020-03-31 05:15] LABS: Hemoglobin 8.8 g/dL (12.0-15.0); Mean Corpuscular HGB Conc 30.3 g/dl (32-36); Mean Corpuscular Hemoglobin 24.2 pg (26-34); Mean Corpuscular Volume 79.9 fl (80-100); Mean Platelet Volume 10.4 fl (7.4-10.4); Platelet Count Result 287 k/mm3 (150-375); Red Blood Count 3.63 M/mm3 (4.2-5.4); Red Cell Distribution Width 17.9 % (11.5-14.5); White Blood Count 18.5 K/mm3 (4.5-10.0)
[2020-03-31 05:25] LABS: Base Excess ABG 0.6 mEq/l (+/-2.0); Fractional Inspired Oxygen 55 %; HCO3 ABG 26.5 mEq/l (22.0-26.0); Methemoglobin ABG 0.3 %THb (0-1.5); Oxygen Content ABG 11.8 %vol (16.0-22.0); Oxygen Saturation ABG 87.6 % (95.0-100.0); Oxyhemoglobin 86.2 % THb (90.0-100.0); PCO2 ABG 48.7 mmHg (35.0-45.0); PO2 FiO2 Ratio Arterial Blood 1.02 %; Reduced Hemoglobin 12.5 %THb (0-5.0); Total Hemoglobin 9.7 g/dL (12.0-18.0); pH ABG 7.354 (7.350-7.450)
[2020-03-31 05:26] LABS: Arterial Blood Gas Vent Mode PRESSURE CONTROL; Arterial Blood Gas Ventilator rate 24 /MIN; Device VENTILATOR; Modified Allen's Test Pass; Site Drawn LEFT RADIAL
[2020-03-31 05:27] LABS: Arterial Blood Gas PEEP 14 cmH2O; Arterial Blood Gas Pressure Support 24 cmH2O
--- NOTE | 2020-03-31 05:28 | PCRCNOTE ---
ABG OBTAINED AT 0520 03/31/20 POSSIBLY MIXED VENOUS. PT SATING 93% ON CONTINUOS PULSE OX MONITOR
[2020-03-31 05:30] LABS: INR 2.2; Prothrombin Time 23.7 Seconds (11.1-14.7)
[2020-03-31 05:32] LABS: D Dimer 0.95 ug/mL (<0.48)
[2020-03-31 05:36] LABS: Alanine Aminotransferase 49 U/L (4-35); Albumin Level 2.5 g/dL (3.5-5.1); Alkaline Phosphatase 80 U/L (38-126); Anion Gap 2 mmol/L (8-16); Aspartate Amino Transferase 59 U/L (14-36); Bilirubin,Total 0.8 mg/dL (0.2-1.3); Blood Urea Nitrogen 30 mg/dL (7-17); Carbon Dioxide 29 mmol/L (22-30); Chloride 103 mmol/L (98-107); Estimated CRCL calculation 82 ml/min; Estimated Glomerular Filt Rate 48; Glucose 170 mg/dL (65-105); Lactate Dehydrogenase 687 U/L (313-618); Magnesium 2.1 mg/dL (1.6-2.3); Potassium 4.4 mmol/L (3.4-5.0); Sodium 134 mmol/L (137-145)
[2020-03-31] MEDS: CENTRAL LINE FLUSH 10 ML IV PUSH ×2 (05:40→13:42)
[2020-03-31 07:23] LABS: CRP 27.5 mg/dL (<1.0)
[2020-03-31 08:01] LABS: Alveolar/Arterial O2 Gradient 304.2 mmHg; Fractional Inspired Oxygen 60 %; HCO3 ABG 26.5 mEq/l (22.0-26.0); Oxygen Content ABG 14.8 %vol (16.0-22.0); Oxygen Saturation ABG 92.1 % (95.0-100.0); Oxyhemoglobin 88.8 % THb (90.0-100.0); PCO2 ABG 50.9 mmHg (35.0-45.0); PO2 ABG 67.6 mmHg (80.0-100.0); PO2 FiO2 Ratio Arterial Blood 1.13 %; Total Hemoglobin 11.8 g/dL (12.0-18.0); pH ABG 7.334 (7.350-7.450)
[2020-03-31] MEDS: DORNASE ALFA INH SOLN 1 MG/ML 2.5 ML AMP 2.5 MG INHALATION ×2 (08:01→19:25)
[2020-03-31 08:03] LABS: Device VENTILATOR; Modified Allen's Test Pass; Site Drawn RIGHT RADIAL
[2020-03-31 08:04] LABS: Arterial Blood Gas PEEP 14 cmH2O; Arterial Blood Gas Vent Mode PRESSURE CONTROL; Arterial Blood Gas Ventilator rate 24 /MIN; Peak Inspiratory Pressure 24 cmH2O
[2020-03-31] MEDS: PANTOPRAZOLE SODIUM IV 40 MG VIAL IV PUSH (08:43)
[2020-03-31] MEDS: DEXAMETHASONE SOD PHOS INJ 4 MG/ML VIAL 6 MG IV PUSH (08:43)
[2020-03-31] MEDS: PROPOFOL IV EMULSION 100 ML 15.8 MG IV CONT ×3 (08:50→20:06)
--- NOTE | 2020-03-31 08:56 | WPDINTPN ---
Progress Note: A&P Assessment and Plan (1) Septic shock: Code(s): A41.9 - Sepsis, unspecified organism; R65.21 - Severe sepsis with septic shock Status: Acute Assessment and Plan: patient hypotensive, night of 03/30/2020, patient give 500 mL of Hespan, started on Levophed - will maintain MAP > 65 mmHg - patient has thick cervantes-colored secretions from the ET tube - blood, urine, sputum cultures have been ordered - WBC increased to 18.5 from 10.5 a day prior - started on vancomycin and cefepime (2) Acute respiratory failure with hypoxia: Code(s): J96.01 - Acute respiratory failure with hypoxia Status: Acute Assessment and Plan: Acute Respiratory failure secondary to COVID-19 pneumonia. 03/25- patient was on 8 L nasal cannula on admission 03/26- hypoxia worsened and patient was on AirVo. Later in the evening patient was placed on BiPAP due to continued worsening of hypoxia and was given Lasix. 03/27- Patient required to be intubated - patient on pressure control mode of ventilation, peep of 14, PO2 of 60%. - chest x-ray and ABGs reviewed - continue low tidal volume strategy to prevent volutrauma - patient sedated with fentanyl, Versed, propofol. Also on Nimbex for paralysis - echocardiogram showed EF of 70%, diastolic function is abnormal. - Continue bronchodilators - continue Pulmozyme (3) Pneumonia due to COVID-19 virus: Code(s): U07.1 - COVID-19; J12.89 - Other viral pneumonia Status: Acute Assessment and Plan: SARS-CoV-2 PCR positive -Patient is in Airborne, Droplet and Contact Isolation -Continue dexamethasone and Remdesivir. Both started 03/25 - And inflammatory markers reviewed, LDH, ferritin, CRP trending down, D-dimer also has trended down - patient received a unit of convalescent COVID-19 plasma on 03/27/2020 (4) Renal failure: Code(s): N19 - Unspecified kidney failure Status: Acute Assessment and Plan: patient with acute kidney injury with creatinine trending up - will give additional IV fluid bolus of 500 mL normal saline this morning -will continue to monitor renal function, electrolytes and urine output - lactic acid is normal (5) Cerebrovascular accident: Onset Date: ~2017 Code(s): I63.9 - Cerebral infarction, unspecified Status: Acute Assessment and Plan: history of CVA although details are not available this time - patient has been on Coumadin INR is supratherapeutic, will check INR daily, when INR is within therapeutic range will start therapeutic Lovenox or heparin infusion - continue statin (6) Hypertension: Code(s): I10 - Essential (primary) hypertension Status: Acute Assessment and Plan: currently requiring Levophed will hold antihypertensives (7) DVT prophylaxis: Code(s): Z29.9 - Encounter for prophylactic measures, unspecified Status: Acute Assessment and Plan: DVT prophylaxis: start patient on heparin infusion (8) Dietary counseling and surveillance: Code(s): Z71.3 - Dietary counseling and surveillance Status: Acute Assessment and Plan: stress ulcer prophylaxis: Protonix - patient currently on tube feeds at 40 mL/hr and tolerating. Will increase tube feeds to goal Additional Plan Discussed with patient's family and updated them with condition and plan of care. Code Status - full code Total Critical Care Time - 36 minutes Due to a high probability of clinically significant, life threatening deterioration, the patient required my highest level of preparedness to intervene emergently and I personally spent this critical care time directly and personally managing the patient. This critical care time included obtaining a history; examining the patient; pulse oximetry; ordering and review of studies; arranging urgent treatment with development of a management plan; evaluation of patient's response to david
[2020-03-31] MEDS: FENTANYL 2,500MCG/NS250ML(*CRX 2,500 MCG/250 ML BAG 20 MCG IV CONT ×2 (09:54→20:58)
[2020-03-31] MEDS: SODIUM CHLORIDE 0.9% IV 500 ML IV CONT (09:56)
--- NOTE | 2020-03-31 10:48 | PCDIET ---
Nutrition Follow-Up Complete: Inadequate oral intake related to oral intubation as evidenced by NPO status. Patient to meet estimated nutritional needs. Goal: Progressing towards goal. Continue current goal. Pt current nutrition is Vital 1.2 @ 40ml/hr Nutrition recommendation: Advance to goal today of 50ml/hr Last recorded weight is 142 kg up from 140.4kg on last assessment) +[id number] I/O Bowel Motility: Last BM 20th, pt may benefit from motility agent Labs Reviewed:334 Ferritin, Na 134, Albumin 2.5, WBC 18.5, Hgb 8.8, Hct 29.0, GFR 48, BUN 30, Cr 1.2, Glucose 170, AST 59 ALT 49 Meds Noted:Nimbex, Fentanyl, Propofol, Versed, Levo, Protonix, Vancomycin, albuterol, lipitor, cefepime, dexamethasone Additional Notes: Pt tolerating Vital 1.2 at 40ml/hr, providing 1056 kcals over 22 hrs. Propofol currently at 15.8ml/hr providing 417 kcals over 24 hrs. Total intake (EN+propofol) currently meeting 74% of pt nutrition needs. Pt with 10ml residual this am. Plans to increase Vital 1.2 to 50ml/hr today. At goal, this will provide 1320kcals + propofol (417kcals) to meet 88% of pt needs at this time, which is appropriate. If propofol were to titrate off, an EN goal of 75ml/hr of Vital 1.2 over 22hrs would be appropriate to provide 1980kcals, meeting 100% of pt nutrition needs. Adidtion of Vitamin C would also be appropriate due to inflammatory process. Following daily in ICU rounds, reassessing every T/F.
--- NOTE | 2020-03-31 14:18 | PM.IMPN ---
Progress Note: A&P Assessment and Plan (1) Sepsis: Code(s): A41.9 - Sepsis, unspecified organism Status: Acute Assessment and Plan: Present on admission and supported by tachycardia, tachypnea, and organ dysfunction due to sepsis from COVID-19, with a qSOFA score of 2 and a SOFA score of 7. Lactic acid levels within normal limits, blood cultures have been obtained and are pending. 03/31/20 14:18 patient is a 45-year-old female state history of stroke presented emergency department with shortness of breath and hypoxic patient is being expose to COVID-19 as her is positive and concerned that patient have COVID-19 has been tested and positive, patient was placed in isolation and on Airvo which did improve patient oxygen saturation, today spoke with the motor vehicle lecturer patient is hypoxic and on Airvo, and dexamethasone suggesting the patient will benefit from convalscent plasma therapy for COVID-19, on 03/27 Dr. Acuña spoke with the patient and has agreed to receive the treatment and 1 unit dose ordered, on 03/27 metal organ pipe maker patient's respiratory status deteriorated and had an emergent intubation and currently on vent, patient is seen by intensive on 03/[address] Rapp patient had convalscent plasma therapy and will Continue dexamethasone and Remdesivir both started on 03/25 . Patient is requiring with fentanyl, Versed, propofol sedation. Also on Nimbex for paralysis, patient is on Coumadin for anticoagulation however INR is supratherapeutic will hold, today on 03/[address] Rapp on . Nimbex was stopped however patient breathing was quite unsynchronized, patient was continued on fentanyl, Versed, and propofol and Nimbex was restarted to paralyzed to remain sedated on vent, today 03/31 there is brown secreation from ET tube and her white counts are elevated, patient was started on vancomycin and cefepime, however patient oxygen requirement as well as an inflammatory marker are improving, will continue present management, patient seen by motor vehicle lecturer and appreciate. (2) Acute respiratory failure with hypoxia: Code(s): J96.01 - Acute respiratory failure with hypoxia Status: Acute Assessment and Plan: Secondary to COVID pneumonia. Continue Airvo therapy. (3) Pneumonia due to COVID-19 virus: Code(s): U07.1 - COVID-19; J12.89 - Other viral pneumonia Status: Acute Assessment and Plan: She has been started remdesivir and dexamethasone per protocol. Continue contact, droplet, airborne isolation. (4) Elevated troponin: Code(s): R79.89 - Other specified abnormal findings of blood chemistry Status: Acute Assessment and Plan: Likely these are elevated in the setting of hypoxia as she is having no chest pain. Continue to trend to rule out significant jump, and monitor on telemetry overnight. Obtain echocardiogram. (5) Renal failure: Code(s): N19 - Unspecified kidney failure Status: Acute Assessment and Plan: Patient denies history of renal failure, and I suspect this is secondary to infection from COVID pneumonia. May also be a component of dehydration due to insensible losses from fevers. Cautious IV fluid rehydration overnight only, to avoid volume overload. (6) Current use of long-term anticoagulation: Code(s): Z79.01 - halfway (current) use of anticoagulants Status: Acute Assessment and Plan: INR is therapeutic at 2.3 and will be monitored daily. (7) Hypertension: Code(s): I10 - Essential (primary) hypertension Status: Acute Assessment and Plan: Blood pressures were reviewed and
[2020-03-31] MEDS: ATORVASTATIN 20 MG TABLET PO (20:08)
[2020-04-01] VITALS (46 sets, daily range): BP systolic 105–130; BP diastolic 58–78; PULSE 56–90; RESP 17–24; TEMP 36.5–37.1; O2SAT 94–97
[2020-04-01] MEDS: ALBUTEROL SULFATE NEB 2.5 MG/0.5 ML INH INHALATION ×4 (01:02→19:49)
[2020-04-01] MEDS: IPRATROPIUM BR 0.02% INH SOLN 0.5 MG/2.5 ML VIAL INHALATION ×4 (01:02→19:49)
[2020-04-01] MEDS: PROPOFOL IV EMULSION 100 ML 15.8 MG IV CONT ×5 (01:26→22:04)
[2020-04-01] MEDS: CENTRAL LINE FLUSH 10 ML IV PUSH ×4 (02:29→22:06)
[2020-04-01 04:48] LABS: Alveolar/Arterial O2 Gradient 294.7 mmHg; Base Excess ABG 0.1 mEq/l (+/-2.0); Carboxyhemoglobin 0.2 % THb (0-2.0); Fractional Inspired Oxygen 60 %; HCO3 ABG 25.7 mEq/l (22.0-26.0); Methemoglobin ABG 0.3 %THb (0-1.5); Oxygen Content ABG 12.1 %vol (16.0-22.0); Oxygen Saturation ABG 95.6 % (95.0-100.0); PCO2 ABG 46.7 mmHg (35.0-45.0); PO2 ABG 81.7 mmHg (80.0-100.0); PO2 FiO2 Ratio Arterial Blood 1.36 %; Reduced Hemoglobin 5.5 %THb (0-5.0); Total Hemoglobin 9.1 g/dL (12.0-18.0); pH ABG 7.359 (7.350-7.450)
[2020-04-01 05:17] LABS: Device VENTILATOR; Modified Allen's Test Pass; Site Drawn RIGHT RADIAL
[2020-04-01 05:19] LABS: Arterial Blood Gas PEEP 14 cmH2O; Arterial Blood Gas Vent Mode PRESSURE CONTROL; Arterial Blood Gas Ventilator rate 24 /MIN
[2020-04-01 05:20] LABS: Arterial Blood Gas Pressure Support 26 cmH2O
[2020-04-01 06:27] LABS: Hematocrit 25.4 % (37.0-47.0); Hemoglobin 7.8 g/dL (12.0-15.0); Mean Corpuscular HGB Conc 30.7 g/dl (32-36); Mean Corpuscular Hemoglobin 24.1 pg (26-34); Mean Corpuscular Volume 78.4 fl (80-100); Mean Platelet Volume 10.1 fl (7.4-10.4); Platelet Count Result 206 k/mm3 (150-375); Red Blood Count 3.24 M/mm3 (4.2-5.4); Red Cell Distribution Width 17.6 % (11.5-14.5); White Blood Count 10.1 K/mm3 (4.5-10.0)
[2020-04-01 06:39] LABS: INR 1.6; Prothrombin Time 18.6 Seconds (11.1-14.7)
[2020-04-01 06:42] LABS: Anion Gap 1 mmol/L (8-16); Blood Urea Nitrogen 28 mg/dL (7-17); Calcium 7.9 mg/dL (8.4-10.2); Carbon Dioxide 28 mmol/L (22-30); Chloride 102 mmol/L (98-107); Estimated CRCL calculation 108 ml/min; Estimated Glomerular Filt Rate > 60; Glucose 183 mg/dL (65-105); Potassium 4.7 mmol/L (3.4-5.0); Sodium 131 mmol/L (137-145)
[2020-04-01 06:51] LABS: Lactate Dehydrogenase 440 U/L (313-618)
[2020-04-01] MEDS: DEXAMETHASONE SOD PHOS INJ 4 MG/ML VIAL 6 MG IV PUSH (08:07)
[2020-04-01] MEDS: PANTOPRAZOLE SODIUM IV 40 MG VIAL IV PUSH (08:07)
[2020-04-01] MEDS: DORNASE ALFA INH SOLN 1 MG/ML 2.5 ML AMP 2.5 MG INHALATION (08:26)
[2020-04-01] MEDS: HEPARIN SODIUM 5,000 UNITS/ML VIAL 8000 UNITS IV PUSH ×2 (09:49→16:17)
[2020-04-01] MEDS: HEPARIN SOD/D5W 100 UNITS/ML 25,000 UNITS/250 ML BAG 15 UNITS IV CONT (09:52)
[2020-04-01 10:38] LABS: Basophils Percent Auto 0.1 % (0.2-1.2); Eosinophils Absolute Auto 0.1 K/mm3 (0-0.3); Eosinophils Percent Auto 0.6 % (0-4.4); Hematocrit 24.2 % (37.0-47.0); Hemoglobin 7.5 g/dL (12.0-15.0); Lymphocytes Absolute Auto 0.25 K/mm3 (0.9-3.2); Lymphocytes Percent Auto 2.6 % (18.3-44.2); Mean Corpuscular Volume 77.6 fl (80-100); Mean Platelet Volume 10.2 fl (7.4-10.4); Monocytes Absolute Auto 0.5 K/mm3 (0.1-0.6); Monocytes Percent Auto 4.8 % (2.6-8.5); Neutrophils Absolute Auto 8.7 K/mm3 (1.3-6.7); Neutrophils Percent Auto 90.9 % (45.5-73.1); Platelet Count Result 205 k/mm3 (150-375); Red Blood Count 3.12 M/mm3 (4.2-5.4); Red Cell Distribution Width 17.8 % (11.5-14.5); White Blood Count 9.6 K/mm3 (4.5-10.0)
[2020-04-01] MEDS: FENTANYL 2,500MCG/NS250ML(*CRX 2,500 MCG/250 ML BAG 17.5 MCG IV CONT (10:52)
--- NOTE | 2020-04-01 12:03 | WPDINTPN ---
Progress Note: A&P Assessment and Plan (1) Septic shock: Code(s): A41.9 - Sepsis, unspecified organism; R65.21 - Severe sepsis with septic shock Status: Acute Assessment and Plan: RESOLVED, OFF LEVOPHED - patient hypotensive, night of 03/30/2020, patient give 500 mL of Hespan, started on Levophed - will maintain MAP > 65 mmHg - continues to have thick secretions from the ET tube, - sputum cultures growing Hemophilus influenzae - urine culture growing E coli ( graves susceptible) - blood cultures growing bacillus species not anthracis. - WBC Has normalized - continue vancomycin and cefepime ( started on 03/31) (2) Acute respiratory failure with hypoxia: Code(s): J96.01 - Acute respiratory failure with hypoxia Status: Acute Assessment and Plan: Acute Respiratory failure secondary to COVID-19 pneumonia. 03/25- patient was on 8 L nasal cannula on admission 03/26- hypoxia worsened and patient was on AirVo. Later in the evening patient was placed on BiPAP due to continued worsening of hypoxia and was given Lasix. 03/27- Patient required to be intubated - patient on pressure control mode of ventilation with inspiratory pressure of 26, peep of 14, PO2 of 60%. - chest x-ray and ABGs reviewed - continue low tidal volume strategy to prevent volutrauma - patient sedated with fentanyl, Versed, propofol. Also on Nimbex for paralysis - echocardiogram showed EF of 70%, diastolic function is abnormal. - Continue bronchodilators - continue Pulmozyme (3) Pneumonia due to COVID-19 virus: Code(s): U07.1 - COVID-19; J12.89 - Other viral pneumonia Status: Acute Assessment and Plan: SARS-CoV-2 PCR positive -Patient is in Airborne, Droplet and Contact Isolation -Continue dexamethasone and Remdesivir. Both started 03/25 - And inflammatory markers reviewed, LDH, ferritin, CRP trending down, D-dimer also has trended down - patient received a unit of convalescent COVID-19 plasma on 03/27/2020 (4) Renal failure: Code(s): N19 - Unspecified kidney failure Status: Acute Assessment and Plan: creatinine normalized, urine output has been adequate lactic acid is normal, patient did have worsening of renal function, secondary to septic shock related to UTI, pneumonia -will continue to monitor renal function, electrolytes and urine output (5) Cerebrovascular accident: Onset Date: ~2017 Code(s): I63.9 - Cerebral infarction, unspecified Status: Acute Assessment and Plan: history of CVA although details are not available this time - patient has been on Coumadin INR is supratherapeutic, will check INR daily, when INR is within therapeutic range will start therapeutic Lovenox or heparin infusion - continue statin (6) Hypertension: Code(s): I10 - Essential (primary) hypertension Status: Acute Assessment and Plan: blood pressures have been stable, patient came off Levophed on 03/31/2020 will hold antihypertensives (7) DVT prophylaxis: Code(s): Z29.9 - Encounter for prophylactic measures, unspecified Status: Acute Assessment and Plan: DVT prophylaxis: start heparin infusion (8) Dietary counseling and surveillance: Code(s): Z71.3 - Dietary counseling and surveillance Status: Acute Assessment and Plan: stress ulcer prophylaxis: Protonix - patient tolerating tube feeds at 55 mL/hr Additional Plan Discussed with patient's family and updated them with condition and plan of care. Code Status - full code Total Critical Care Time - 33 minutes Due to a high probability of clinically significant, life threatening deterioration, the patient required my highest level of preparedness to intervene emergently and I personally spent this critical care time directly and personally managing the patient. This critical care time included obtaining a history; examining the patie
[2020-04-01 12:12] LABS: INR 1.6; Prothrombin Time 18.6 Seconds (11.1-14.7)
[2020-04-01 12:13] LABS: Partial Thromboplastin Time 38.2 SECONDS (22.3-36.8)
--- NOTE | 2020-04-01 15:21 | PM.IMPN ---
Progress Note: A&P Assessment and Plan (1) Sepsis: Code(s): A41.9 - Sepsis, unspecified organism Status: Acute Assessment and Plan: Present on admission and supported by tachycardia, tachypnea, and organ dysfunction due to sepsis from COVID-19, with a qSOFA score of 2 and a SOFA score of 7. Lactic acid levels within normal limits, blood cultures have been obtained and are pending. 04/01/20 15:21 patient is a 45-year-old female state history of stroke presented emergency department with shortness of breath and hypoxic patient is being expose to COVID-19 as her is positive and concerned that patient have COVID-19 has been tested and positive, patient was placed in isolation and on Airvo which did improve patient oxygen saturation, today spoke with the gas meter repair supervisor patient is hypoxic and on Airvo, and dexamethasone suggesting the patient will benefit from convalscent plasma therapy for COVID-19, on 03/27 Dr. Acuña spoke with the patient and has agreed to receive the treatment and 1 unit dose ordered, on 03/27 chapter relations administrator patient's respiratory status deteriorated and had an emergent intubation and currently on vent, patient is seen by intensive on 03/[address] Rapp patient had convalscent plasma therapy and will Continue dexamethasone and Remdesivir both started on 03/25 . Patient is requiring with fentanyl, Versed, propofol sedation. Also on Nimbex for paralysis, patient is on Coumadin for anticoagulation however INR is supratherapeutic will hold, today on 03/[address] Rapp on 03/30 Nimbex was stopped however patient breathing was quite unsynchronized, patient was continued on fentanyl, Versed, and propofol and Nimbex was restarted to paralyzed to remain sedated on vent, on 03/31 there was brown secreation from ET tube and her white counts were elevated, patient was started on vancomycin and cefepime, today 04/01 patient is still sedated and on Nimbex, her her sputum culture is growing Haemophilus influenza, urine is growing E coli sensitive to cefepime will continue, 1 bottle of blood culture is growing bacillus species not be anthracis, however patient oxygen requirement as well as an inflammatory marker are improving including white count, will continue present management, patient seen by gas meter repair supervisor and appreciate. (2) Acute respiratory failure with hypoxia: Code(s): J96.01 - Acute respiratory failure with hypoxia Status: Acute Assessment and Plan: Secondary to COVID pneumonia. Continue Airvo therapy. (3) Pneumonia due to COVID-19 virus: Code(s): U07.1 - COVID-19; J12.89 - Other viral pneumonia Status: Acute Assessment and Plan: She has been started remdesivir and dexamethasone per protocol. Continue contact, droplet, airborne isolation. (4) Elevated troponin: Code(s): R79.89 - Other specified abnormal findings of blood chemistry Status: Acute Assessment and Plan: Likely these are elevated in the setting of hypoxia as she is having no chest pain. Continue to trend to rule out significant jump, and monitor on telemetry overnight. Obtain echocardiogram. (5) Renal failure: Code(s): N19 - Unspecified kidney failure Status: Acute Assessment and Plan: Patient denies history of renal failure, and I suspect this is secondary to infection from COVID pneumonia. May also be a component of dehydration due to insensible losses from fevers. Cautious IV fluid rehydration overnight only, to avoid volume overload. (6) Current use of correction anticoagulation: Code(s): Z79.01 - group home (current) use of anticoagulants Status: Acute Assessment and Plan: INR is t
[2020-04-01 16:07] LABS: Partial Thromboplastin Time 51.9 SECONDS (22.3-36.8)
[2020-04-01] MEDS: ATORVASTATIN 20 MG TABLET PO (20:15)
[2020-04-01 21:19] LABS: Vancomycin Trough 13.6 ug/mL (10.0-20.0)
[2020-04-01] MEDS: HEPARIN SOD/D5W 100 UNITS/ML 25,000 UNITS/250 ML BAG 19 UNITS IV CONT (22:08)
[2020-04-01 22:41] LABS: Partial Thromboplastin Time 77.2 SECONDS (22.3-36.8)
[2020-04-02] VITALS (43 sets, daily range): BP systolic 116–127; BP diastolic 69–75; PULSE 55–108; RESP 24; TEMP 36.7–37; O2SAT 90–99
[2020-04-02] MEDS: FENTANYL 2,500MCG/NS250ML(*CRX 2,500 MCG/250 ML BAG 17.5 MCG IV CONT ×2 (01:15→16:13)
[2020-04-02] MEDS: IPRATROPIUM BR 0.02% INH SOLN 0.5 MG/2.5 ML VIAL INHALATION ×4 (02:15→21:19)
[2020-04-02] MEDS: ALBUTEROL SULFATE NEB 2.5 MG/0.5 ML INH INHALATION ×4 (02:15→21:19)
[2020-04-02 04:15] LABS: Base Excess ABG -0.6 mEq/l (+/-2.0); Carboxyhemoglobin 0.6 % THb (0-2.0); Device VENTILATOR; Fractional Inspired Oxygen 50 %; HCO3 ABG 23.6 mEq/l (22.0-26.0); Methemoglobin ABG 0.3 %THb (0-1.5); Modified Allen's Test Pass; Oxygen Content ABG 11.9 %vol (16.0-22.0); Oxygen Saturation ABG 96.2 % (95.0-100.0); Oxyhemoglobin 94.1 % THb (90.0-100.0); PCO2 ABG 36.5 mmHg (35.0-45.0); PO2 ABG 80.4 mmHg (80.0-100.0); PO2 FiO2 Ratio Arterial Blood 1.61 %; Site Drawn RIGHT RADIAL; Total Hemoglobin 8.9 g/dL (12.0-18.0); pH ABG 7.428 (7.350-7.450)
[2020-04-02 04:16] LABS: Arterial Blood Gas PEEP 14 cmH2O; Arterial Blood Gas Vent Mode PRESSURE CONTROL; Arterial Blood Gas Ventilator rate 24 /MIN; Peak Inspiratory Pressure 26 cmH2O
[2020-04-02] MEDS: PROPOFOL IV EMULSION 100 ML 15.8 MG IV CONT ×4 (04:20→20:51)
[2020-04-02 05:23] LABS: INR 1.3; Prothrombin Time 15.6 Seconds (11.1-14.7)
[2020-04-02 05:24] LABS: Partial Thromboplastin Time 51.7 SECONDS (22.3-36.8)
[2020-04-02 05:26] LABS: D Dimer 1.22 ug/mL (<0.48)
[2020-04-02 05:44] LABS: Alanine Aminotransferase 50 U/L (4-35); Albumin Level 2.4 g/dL (3.5-5.1); Alkaline Phosphatase 88 U/L (38-126); Anion Gap -1 mmol/L (8-16); Aspartate Amino Transferase 42 U/L (14-36); Bilirubin,Total 0.4 mg/dL (0.2-1.3); Blood Urea Nitrogen 32 mg/dL (7-17); Calcium 8.2 mg/dL (8.4-10.2); Carbon Dioxide 30 mmol/L (22-30); Chloride 101 mmol/L (98-107); Estimated CRCL calculation 109 ml/min; Estimated Glomerular Filt Rate > 60; Glucose 320 mg/dL (65-105); Lactate Dehydrogenase 420 U/L (313-618); Magnesium 2.7 mg/dL (1.6-2.3); Phosphorus 2.5 mg/dL (2.5-4.5); Potassium 5.5 mmol/L (3.4-5.0); Sodium 130 mmol/L (137-145)
[2020-04-02 05:50] LABS: CRP 18.7 mg/dL (<1.0)
[2020-04-02] MEDS: CENTRAL LINE FLUSH 10 ML IV PUSH ×3 (06:01→22:05)
[2020-04-02] MEDS: HEPARIN SODIUM 5,000 UNITS/ML VIAL 8000 UNITS IV PUSH ×2 (06:02→18:37)
[2020-04-02 06:15] LABS: Basophils Percent Auto 0.1 % (0.2-1.2); Eosinophils Percent Auto 0.4 % (0-4.4); Hematocrit 25.3 % (37.0-47.0); Hemoglobin 7.8 g/dL (12.0-15.0); Immature Granulocyte Absolute 0.57 K/mm3 (0.00-0.031); Immature Granulocyte Percent A 5.1 % (0-0.5); Lymphocytes Absolute Auto 0.53 K/mm3 (0.9-3.2); Lymphocytes Percent Auto 4.8 % (18.3-44.2); Mean Corpuscular HGB Conc 30.8 g/dl (32-36); Mean Corpuscular Hemoglobin 23.8 pg (26-34); Mean Corpuscular Volume 77.1 fl (80-100); Mean Platelet Volume 10.1 fl (7.4-10.4); Monocytes Absolute Auto 0.7 K/mm3 (0.1-0.6); Monocytes Percent Auto 6.2 % (2.6-8.5); Neutrophils Absolute Auto 9.3 K/mm3 (1.3-6.7); Neutrophils Percent Auto 83.4 % (45.5-73.1); Nucleated Red Blood Cells Absolute Auto 0.1 K/mm3 (0.0-0.012); Nucleated Red Blood Cells Perc 0.5 % (0.0-0.2); Platelet Count Result 254 k/mm3 (150-375); Red Blood Count 3.28 M/mm3 (4.2-5.4); Red Cell Distribution Width 17.8 % (11.5-14.5); White Blood Count 11.1 K/mm3 (4.5-10.0)
[2020-04-02] MEDS: DORNASE ALFA INH SOLN 1 MG/ML 2.5 ML AMP 2.5 MG INHALATION ×2 (07:45→21:19)
[2020-04-02] MEDS: PANTOPRAZOLE SODIUM IV 40 MG VIAL IV PUSH (07:46)
[2020-04-02] MEDS: DEXAMETHASONE SOD PHOS INJ 4 MG/ML VIAL 6 MG IV PUSH (07:46)
[2020-04-02 08:03] LABS: Alanine Aminotransferase 50 U/L (4-35); Albumin Level 2.4 g/dL (3.5-5.1); Alkaline Phosphatase 81 U/L (38-126); Anion Gap -1 mmol/L (8-16); Aspartate Amino Transferase 41 U/L (14-36); Bilirubin,Total 0.5 mg/dL (0.2-1.3); Blood Urea Nitrogen 33 mg/dL (7-17); Calcium 8.3 mg/dL (8.4-10.2); Carbon Dioxide 31 mmol/L (22-30); Chloride 101 mmol/L (98-107); Estimated CRCL calculation 109 ml/min; Estimated Glomerular Filt Rate > 60; Glucose 304 mg/dL (65-105); Potassium 5.4 mmol/L (3.4-5.0); Sodium 131 mmol/L (137-145)
--- NOTE | 2020-04-02 09:02 | WPDINTPN ---
Progress Note: A&P Assessment and Plan (1) Septic shock: Code(s): A41.9 - Sepsis, unspecified organism; R65.21 - Severe sepsis with septic shock Status: Acute Assessment and Plan: RESOLVED, OFF LEVOPHED - patient hypotensive, night of 03/30/2020, patient give 500 mL of Hespan, started on Levophed - will maintain MAP > 65 mmHg - continues to have thick secretions from the ET tube, - sputum cultures growing Hemophilus influenzae - urine culture growing E coli ( graves susceptible) - blood cultures growing bacillus species not anthracis. - WBC Has normalized - continue vancomycin and cefepime ( started on 03/31) (2) Acute respiratory failure with hypoxia: Code(s): J96.01 - Acute respiratory failure with hypoxia Status: Acute Assessment and Plan: Acute Respiratory failure secondary to COVID-19 pneumonia. 03/25- patient was on 8 L nasal cannula on admission 03/26- hypoxia worsened and patient was on AirVo. Later in the evening patient was placed on BiPAP due to continued worsening of hypoxia and was given Lasix. 03/27- Patient required to be intubated - patient on pressure control mode of ventilation with inspiratory pressure of 26, peep of 14, PO2 of 50% FIO2. - chest x-ray and ABGs reviewed - continue low tidal volume strategy to prevent volutrauma - patient sedated with fentanyl, Versed, propofol. Also on Nimbex for paralysis. WILL WEAN NIMBEX TO OFF TODAY - echocardiogram showed EF of 70%, diastolic function is abnormal. - Continue bronchodilators - continue Pulmozyme (3) Pneumonia due to COVID-19 virus: Code(s): U07.1 - COVID-19; J12.89 - Other viral pneumonia Status: Acute Assessment and Plan: SARS-CoV-2 PCR positive -Patient is in Airborne, Droplet and Contact Isolation - STATUS POST dexamethasone and Remdesivir. - inflammatory markers reviewed, LDH, ferritin, CRP trending down, D-dimer slightly increased - patient received a unit of convalescent COVID-19 plasma on 03/27/2020 (4) Renal failure: Code(s): N19 - Unspecified kidney failure Status: Acute Assessment and Plan: creatinine normalized, urine output has been adequate lactic acid is normal, patient did have worsening of renal function, secondary to septic shock related to UTI, pneumonia -will continue to monitor renal function, electrolytes and urine output (5) Cerebrovascular accident: Onset Date: ~2017 Code(s): I63.9 - Cerebral infarction, unspecified Status: Acute Assessment and Plan: history of CVA although details are not available this time - patient has been on Coumadin at home, started heparin infusion 04/01 - continue statin (6) Hypertension: Code(s): I10 - Essential (primary) hypertension Status: Acute Assessment and Plan: blood pressures have been stable, patient came off Levophed on 03/31/2020 will hold antihypertensives (7) DVT prophylaxis: Code(s): Z29.9 - Encounter for prophylactic measures, unspecified Status: Acute Assessment and Plan: DVT prophylaxis: continue heparin infusion (8) Dietary counseling and surveillance: Code(s): Z71.3 - Dietary counseling and surveillance Status: Acute Assessment and Plan: stress ulcer prophylaxis: Protonix - tube feeds at goal, tolerating (9) Hyperkalemia: Code(s): E87.5 - Hyperkalemia Status: Acute Assessment and Plan: patient hyperkalemic - will treat with insulin, D50, bicarb, albuterol and Kayexalate (10) Hyperglycemia: Code(s): R73.9 - Hyperglycemia, unspecified Status: Acute Assessment and Plan: patient had a glycemic just this morning, placed on Accu-Cheks and sliding scale insulin Additional Plan discussed with and son and updated them with patient's condition and plan of care. Code Status - full code Total Critical Care Time - 33 minut
[2020-04-02] MEDS: SODIUM BICARBONATE 8.4% 50 MEQ/50 ML VIAL IV PUSH (09:15)
[2020-04-02] MEDS: DEXTROSE 50% 25 GM/50 ML SYRINGE IV PUSH (09:16)
[2020-04-02] MEDS: INSULIN HUMAN REGULAR (*BKC) 100 UNITS/ML 10 UNITS IV PUSH (09:16)
[2020-04-02] MEDS: SODIUM POLYSTYRENE SULFONONATE 15 GM/60 ML BTL PO (09:27)
[2020-04-02] MEDS: ALBUTEROL SULFATE NEB 2.5 MG/0.5 ML INH 15 MG INHALATION (09:28)
[2020-04-02] MEDS: HEPARIN SOD/D5W 100 UNITS/ML 25,000 UNITS/250 ML BAG 21 UNITS IV CONT (10:27)
[2020-04-02] MEDS: INSULIN ASPART (*BKC) 100 UNITS/ML SUB-Q ×3 (11:59→23:34)
[2020-04-02 12:13] LABS: Partial Thromboplastin Time 83.6 SECONDS (22.3-36.8)
[2020-04-02] MEDS: INSULIN DETEMIR 100 UNITS/ML SUB-Q ×2 (12:18→20:12)
[2020-04-02 12:19] LABS: Anion Gap 1 mmol/L (8-16); Blood Urea Nitrogen 34 mg/dL (7-17); Calcium 8.3 mg/dL (8.4-10.2); Carbon Dioxide 31 mmol/L (22-30); Chloride 100 mmol/L (98-107); Estimated CRCL calculation 122 ml/min; Estimated Glomerular Filt Rate > 60; Glucose 377 mg/dL (65-105); Potassium 5.4 mmol/L (3.4-5.0); Sodium 132 mmol/L (137-145)
[2020-04-02 12:22] LABS: Glucose Point of Care 397 (65-105)
--- NOTE | 2020-04-02 12:33 | PM.IMPN ---
Progress Note: A&P Assessment and Plan (1) Sepsis: Code(s): A41.9 - Sepsis, unspecified organism Status: Acute Assessment and Plan: Present on admission and supported by tachycardia, tachypnea, and organ dysfunction due to sepsis from COVID-19, with a qSOFA score of 2 and a SOFA score of 7. Lactic acid levels within normal limits, blood cultures have been obtained and are pending. 04/02/20 12:33 patient is a 45-year-old female state history of stroke presented emergency department with shortness of breath and hypoxic patient is being expose to COVID-19 as her is positive and concerned that patient have COVID-19 has been tested and positive, patient was placed in isolation and on Airvo which did improve patient oxygen saturation, today spoke with the tan room supervisor patient is hypoxic and on Airvo, and dexamethasone suggesting the patient will benefit from convalscent plasma therapy for COVID-19, on 03/27 Dr. 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 Rapp patient had convalscent plasma therapy and will Continue dexamethasone and Remdesivir both started on 03/25 . Patient is requiring with fentanyl, Versed, propofol sedation. Also on Nimbex for paralysis, patient is on Coumadin for anticoagulation however INR is supratherapeutic will hold, on 03/[address] Rapp on 03/30 Nimbex was stopped however patient breathing was quite unsynchronized, patient was continued on fentanyl, Versed, and propofol and Nimbex was restarted to paralyzed to remain sedated on vent, on 03/31 there was brown secreation from ET tube and her white counts were elevated, patient was started on vancomycin and cefepime, on 04/02 patient was still sedated and on Nimbex, her her sputum culture is growing Haemophilus influenza beta lactamase positive, urine is growing E coli sensitive to cefepime will continue, 1 bottle of blood culture is growing bacillus species not be anthracis, however patient oxygen requirement as well as an inflammatory marker are improving including white count, will continue present management, discussed with tan room supervisor, patient seen by tan room supervisor and appreciate. (2) Acute respiratory failure with hypoxia: Code(s): J96.01 - Acute respiratory failure with hypoxia Status: Acute Assessment and Plan: Secondary to COVID pneumonia. Continue Airvo therapy. (3) Pneumonia due to COVID-19 virus: Code(s): U07.1 - COVID-19; J12.89 - Other viral pneumonia Status: Acute Assessment and Plan: She has been started remdesivir and dexamethasone per protocol. Continue contact, droplet, airborne isolation. (4) Elevated troponin: Code(s): R79.89 - Other specified abnormal findings of blood chemistry Status: Acute Assessment and Plan: Likely these are elevated in the setting of hypoxia as she is having no chest pain. Continue to trend to rule out significant jump, and monitor on telemetry overnight. Obtain echocardiogram. (5) Renal failure: Code(s): N19 - Unspecified kidney failure Status: Acute Assessment and Plan: Patient denies history of renal failure, and I suspect this is secondary to infection from COVID pneumonia. May also be a component of dehydration due to insensible losses from fevers. Cautious IV fluid rehydration overnight only, to avoid volume overload. 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
[2020-04-02 17:42] LABS: Glucose Point of Care 332 (65-105)
[2020-04-02 17:58] LABS: Partial Thromboplastin Time 50.1 SECONDS (22.3-36.8)
[2020-04-02] MEDS: ATORVASTATIN 20 MG TABLET PO (20:17)
[2020-04-02 20:39] LABS: Glucose Point of Care 273 (65-105)
[2020-04-02] MEDS: HEPARIN SOD/D5W 100 UNITS/ML 25,000 UNITS/250 ML BAG 25 UNITS IV CONT (21:58)
[2020-04-03] VITALS (53 sets, daily range): BP systolic 120–157; BP diastolic 74–98; PULSE 74–110; RESP 20–32; TEMP 36.4–37.2; O2SAT 88–97
[2020-04-03 00:06] LABS: Glucose Point of Care 263 (65-105)
[2020-04-03] MEDS: IPRATROPIUM BR 0.02% INH SOLN 0.5 MG/2.5 ML VIAL INHALATION ×4 (01:09→20:53)
[2020-04-03] MEDS: ALBUTEROL SULFATE NEB 2.5 MG/0.5 ML INH INHALATION ×4 (01:09→20:53)
[2020-04-03 02:07] LABS: Partial Thromboplastin Time 95.5 SECONDS (22.3-36.8)
[2020-04-03] MEDS: PROPOFOL IV EMULSION 100 ML 15.8 MG IV CONT ×2 (02:54→08:07)
[2020-04-03 04:47] LABS: Alveolar/Arterial O2 Gradient 242.1 mmHg; Base Excess ABG 3.1 mEq/l (+/-2.0); Carboxyhemoglobin 0.4 % THb (0-2.0); Fractional Inspired Oxygen 50 %; HCO3 ABG 27.8 mEq/l (22.0-26.0); Methemoglobin ABG 0.2 %THb (0-1.5); Oxygen Content ABG 11.8 %vol (16.0-22.0); Oxygen Saturation ABG 93.3 % (95.0-100.0); Oxyhemoglobin 91.3 % THb (90.0-100.0); PCO2 ABG 43.5 mmHg (35.0-45.0); PO2 ABG 65.5 mmHg (80.0-100.0); PO2 FiO2 Ratio Arterial Blood 1.31 %; Reduced Hemoglobin 8.1 %THb (0-5.0); Total Hemoglobin 9.1 g/dL (12.0-18.0); pH ABG 7.424 (7.350-7.450)
[2020-04-03 04:48] LABS: Site Drawn LEFT RADIAL
[2020-04-03 04:49] LABS: Arterial Blood Gas Vent Mode PRESSURE CONTROL; Arterial Blood Gas Ventilator rate 24 /MIN; Device VENTILATOR; Modified Allen's Test Pass
[2020-04-03 04:50] LABS: Arterial Blood Gas PEEP 12 cmH2O; Peak Inspiratory Pressure 26 cmH2O
[2020-04-03] MEDS: CENTRAL LINE FLUSH 10 ML IV PUSH ×3 (05:16→21:30)
[2020-04-03 05:50] LABS: Hematocrit 27.6 % (37.0-47.0); Hemoglobin 8.5 g/dL (12.0-15.0); Mean Corpuscular HGB Conc 30.8 g/dl (32-36); Mean Corpuscular Hemoglobin 24.1 pg (26-34); Mean Corpuscular Volume 78.4 fl (80-100); Mean Platelet Volume 9.8 fl (7.4-10.4); Platelet Count Result 262 k/mm3 (150-375); Red Blood Count 3.52 M/mm3 (4.2-5.4); Red Cell Distribution Width 17.9 % (11.5-14.5); White Blood Count 15.6 K/mm3 (4.5-10.0)
[2020-04-03] MEDS: FENTANYL 2,500MCG/NS250ML(*CRX 2,500 MCG/250 ML BAG 17.5 MCG IV CONT ×2 (05:59→20:02)
[2020-04-03 06:03] LABS: Alanine Aminotransferase 61 U/L (4-35); Albumin Level 2.6 g/dL (3.5-5.1); Alkaline Phosphatase 83 U/L (38-126); Anion Gap 1 mmol/L (8-16); Aspartate Amino Transferase 40 U/L (14-36); Bilirubin,Total 0.5 mg/dL (0.2-1.3); Blood Urea Nitrogen 37 mg/dL (7-17); Carbon Dioxide 34 mmol/L (22-30); Chloride 102 mmol/L (98-107); Estimated CRCL calculation 122 ml/min; Estimated Glomerular Filt Rate > 60; Glucose 142 mg/dL (65-105); Magnesium 2.1 mg/dL (1.6-2.3); Phosphorus 3.1 mg/dL (2.5-4.5); Potassium 4.8 mmol/L (3.4-5.0); Sodium 137 mmol/L (137-145)
[2020-04-03 06:05] LABS: Glucose Point of Care 134 (65-105)
[2020-04-03 08:27] LABS: Partial Thromboplastin Time 52.4 SECONDS (22.3-36.8)
[2020-04-03] MEDS: DORNASE ALFA INH SOLN 1 MG/ML 2.5 ML AMP 2.5 MG INHALATION ×2 (08:38→20:53)
[2020-04-03] MEDS: HEPARIN SOD/D5W 100 UNITS/ML 25,000 UNITS/250 ML BAG 25 UNITS IV CONT (09:10)
[2020-04-03] MEDS: DEXAMETHASONE SOD PHOS INJ 4 MG/ML VIAL 6 MG IV PUSH (09:26)
[2020-04-03] MEDS: PANTOPRAZOLE SODIUM IV 40 MG VIAL IV PUSH (09:27)
[2020-04-03] MEDS: INSULIN DETEMIR 100 UNITS/ML SUB-Q ×2 (09:39→21:12)
--- NOTE | 2020-04-03 11:17 | PCDIET ---
ICU Rounding Note: Patient tolerating Glucerna 1.2 at 50mL/hr goal rate for 1320kcal (1737kcal with Propofol at current rate) and 66g protein. Gastric residuals <200mL. Last recorded weight is 144.6kg which is increased from last review. I/O net positive from last review. Bowel Motility: No new documented BM. Recommend medication for BM, if appropriate. Labs Reviewed: Glu (134), BUN (37), Alb (2.6) Meds Noted: Albuterol, Cefepime, Decadron, Fentanyl, Novolog, Levemir, Atrovent, Versed, Vancomycin, Protonix, Propofol (rate of 15.8mL/hr provides 417kcal over 24 hours) Additional Notes: Friction area to right elbow. Considering addition of protein flushes if patient remains on Propofol and unable to increase tube feeding rate. Following daily in ICU rounds. Assessing/reassessing every Friday/Friday.
--- NOTE | 2020-04-03 12:32 | WPDINTPN ---
Progress Note: A&P Assessment and Plan (1) Acute respiratory failure with hypoxia: Code(s): J96.01 - Acute respiratory failure with hypoxia Status: Acute Assessment and Plan: Acute Respiratory failure secondary to COVID-19 pneumonia. 03/25- patient was on 8 L nasal cannula on admission 03/26- hypoxia worsened and patient was on AirVo. Later in the evening patient was placed on BiPAP due to continued worsening of hypoxia and was given Lasix. 03/27- Patient required to be intubated - patient on pressure control mode of ventilation with inspiratory pressure of 26, peep of 12, PO2 of 60% FIO2. elevated peak pressures, switched to CMV mode of ventilation with improvement in peak pressures. WILL CONTINUE TO WEAN FIO2 TO MAINTAIN O2 SATS GREATER THAN 92% - chest x-ray and ABGs reviewed - continue low tidal volume strategy to prevent volutrauma - patient sedated with fentanyl, Versed, propofol. Also on Nimbex for paralysis. OFF NIMBEX SINCE 04/02/2020 - echocardiogram showed EF of 70%, diastolic function is abnormal. - Continue bronchodilators - continue Pulmozyme (2) Septic shock: Code(s): A41.9 - Sepsis, unspecified organism; R65.21 - Severe sepsis with septic shock Status: Acute Assessment and Plan: RESOLVED, OFF LEVOPHED - patient hypotensive, night of 03/30/2020, patient give 500 mL of Hespan, started on Levophed - will maintain MAP > 65 mmHg - continues to have thick secretions from the ET tube, - sputum cultures growing Hemophilus influenzae - urine culture growing E coli ( graves susceptible) - blood cultures growing bacillus species not anthracis. - WBC Has normalized - continue vancomycin and cefepime ( started on 03/31) (3) Pneumonia due to COVID-19 virus: Code(s): U07.1 - COVID-19; J12.89 - Other viral pneumonia Status: Acute Assessment and Plan: SARS-CoV-2 PCR positive -Patient is in Airborne, Droplet and Contact Isolation - STATUS POST dexamethasone and Remdesivir. - inflammatory markers reviewed, LDH, ferritin, CRP trending down, D-dimer slightly increased - patient received a unit of convalescent COVID-19 plasma on 03/27/2020 (4) Renal failure: Code(s): N19 - Unspecified kidney failure Status: Acute Assessment and Plan: creatinine normalized, urine output has been adequate lactic acid is normal, patient did have worsening of renal function, secondary to septic shock related to UTI, pneumonia -will continue to monitor renal function, electrolytes and urine output (5) Cerebrovascular accident: Onset Date: ~2017 Code(s): I63.9 - Cerebral infarction, unspecified Status: Acute Assessment and Plan: history of CVA although details are not available this time - patient has been on Coumadin at home, started heparin infusion 04/01 - continue statin (6) Hypertension: Code(s): I10 - Essential (primary) hypertension Status: Acute Assessment and Plan: blood pressures have been stable, patient came off Levophed on 03/31/2020 will hold antihypertensives (7) DVT prophylaxis: Code(s): Z29.9 - Encounter for prophylactic measures, unspecified Status: Acute Assessment and Plan: DVT prophylaxis: continue heparin infusion (8) Dietary counseling and surveillance: Code(s): Z71.3 - Dietary counseling and surveillance Status: Acute Assessment and Plan: stress ulcer prophylaxis: Protonix - tube feeds at goal, tolerating (9) Hyperkalemia: Code(s): E87.5 - Hyperkalemia Status: Acute Assessment and Plan: patient hyperkalemic - will treat with insulin, D50, bicarb, albuterol and Kayexalate (10) Hyperglycemia: Code(s): R73.9 - Hyperglycemia, unspecified Status: Acute Assessment and Plan: improved, continue small dose of Levemir, Accu-Cheks and sliding scale insulin Additional Plan discussed
[2020-04-03 12:33] LABS: Glucose Point of Care 179 (65-105)
[2020-04-03] MEDS: PROPOFOL IV EMULSION 100 ML 23.7 MG IV CONT (13:35)
[2020-04-03 15:45] LABS: Partial Thromboplastin Time 91.8 SECONDS (22.3-36.8)
[2020-04-03] MEDS: PROPOFOL IV EMULSION 100 ML 31.6 MG IV CONT ×2 (16:43→20:01)
[2020-04-03] MEDS: HEPARIN SOD/D5W 100 UNITS/ML 25,000 UNITS/250 ML BAG 29 UNITS IV CONT (16:45)
[2020-04-03 18:46] LABS: Glucose Point of Care 195 (65-105)
[2020-04-03] MEDS: ATORVASTATIN 20 MG TABLET PO (21:30)
[2020-04-03 21:55] LABS: Partial Thromboplastin Time 94.6 SECONDS (22.3-36.8)
[2020-04-03] MEDS: PROPOFOL IV EMULSION 100 ML 35.5 MG IV CONT (22:42)
[2020-04-03] MEDS: INSULIN ASPART (*BKC) 100 UNITS/ML SUB-Q (23:22)
[2020-04-03 23:29] LABS: Glucose Point of Care 219 (65-105)
[2020-04-04] VITALS (45 sets, daily range): BP systolic 97–136; BP diastolic 49–99; PULSE 50–93; RESP 23–29; TEMP 36.1–36.9; O2SAT 90–95
[2020-04-04] MEDS: PROPOFOL IV EMULSION 100 ML 39.5 MG IV CONT ×5 (01:24→10:33)
[2020-04-04] MEDS: HEPARIN SOD/D5W 100 UNITS/ML 25,000 UNITS/250 ML BAG 29 UNITS IV CONT ×3 (01:25→18:25)
[2020-04-04] MEDS: ALBUTEROL SULFATE NEB 2.5 MG/0.5 ML INH INHALATION ×4 (03:10→21:09)
[2020-04-04] MEDS: IPRATROPIUM BR 0.02% INH SOLN 0.5 MG/2.5 ML VIAL INHALATION ×4 (03:10→21:09)
[2020-04-04 03:48] LABS: Hematocrit 29.8 % (37.0-47.0); Hemoglobin 9.3 g/dL (12.0-15.0); Mean Corpuscular HGB Conc 31.2 g/dl (32-36); Mean Corpuscular Hemoglobin 24.2 pg (26-34); Mean Corpuscular Volume 77.4 fl (80-100); Mean Platelet Volume 9.6 fl (7.4-10.4); Platelet Count Result 244 k/mm3 (150-375); Red Blood Count 3.85 M/mm3 (4.2-5.4); Red Cell Distribution Width 17.9 % (11.5-14.5); White Blood Count 18.9 K/mm3 (4.5-10.0)
[2020-04-04 04:00] LABS: D Dimer 1.65 ug/mL (<0.48)
[2020-04-04 04:09] LABS: CRP 7.1 mg/dL (<1.0); INR 1.2; Lactate Dehydrogenase 589 U/L (313-618); Prothrombin Time 14.7 Seconds (11.1-14.7)
[2020-04-04 04:10] LABS: Alanine Aminotransferase 63 U/L (4-35); Albumin Level 2.7 g/dL (3.5-5.1); Alkaline Phosphatase 86 U/L (38-126); Anion Gap 5 mmol/L (8-16); Aspartate Amino Transferase 43 U/L (14-36); Bilirubin,Total 0.6 mg/dL (0.2-1.3); Blood Urea Nitrogen 50 mg/dL (7-17); Calcium 8.8 mg/dL (8.4-10.2); Carbon Dioxide 31 mmol/L (22-30); Chloride 98 mmol/L (98-107); Estimated CRCL calculation 90 ml/min; Estimated Glomerular Filt Rate 53; Glucose 143 mg/dL (65-105); Magnesium 1.8 mg/dL (1.6-2.3); Phosphorus 5.2 mg/dL (2.5-4.5); Potassium 4.7 mmol/L (3.4-5.0); Sodium 134 mmol/L (137-145)
[2020-04-04 04:51] LABS: Partial Thromboplastin Time 94.2 SECONDS (22.3-36.8)
[2020-04-04 05:36] LABS: Alveolar/Arterial O2 Gradient 385.3 mmHg; Base Excess ABG -0.5 mEq/l (+/-2.0); Carboxyhemoglobin 0.4 % THb (0-2.0); Fractional Inspired Oxygen 70 %; HCO3 ABG 24.8 mEq/l (22.0-26.0); Oxygen Content ABG 13.8 %vol (16.0-22.0); Oxygen Saturation ABG 92.9 % (95.0-100.0); Oxyhemoglobin 91.2 % THb (90.0-100.0); PCO2 ABG 43.4 mmHg (35.0-45.0); PO2 ABG 67.2 mmHg (80.0-100.0); PO2 FiO2 Ratio Arterial Blood 0.96 %; Reduced Hemoglobin 8.4 %THb (0-5.0); Total Hemoglobin 10.7 g/dL (12.0-18.0); pH ABG 7.375 (7.350-7.450)
[2020-04-04] MEDS: CENTRAL LINE FLUSH 10 ML IV PUSH ×3 (05:36→21:23)
[2020-04-04 05:37] LABS: Arterial Blood Gas Ventilator rate 24 /MIN; Device VENTILATOR; Modified Allen's Test Pass; Site Drawn LEFT RADIAL
[2020-04-04 05:38] LABS: Arterial Blood Gas PEEP 12 cmH2O; Arterial Blood Gas Tidal Volume 500 ml; Arterial Blood Gas Vent Mode CMV
[2020-04-04] MEDS: INSULIN DETEMIR 100 UNITS/ML SUB-Q ×2 (07:29→21:22)
[2020-04-04] MEDS: DEXAMETHASONE SOD PHOS INJ 4 MG/ML VIAL 6 MG IV PUSH (07:30)
[2020-04-04] MEDS: PANTOPRAZOLE SODIUM IV 40 MG VIAL IV PUSH (07:30)
[2020-04-04] MEDS: FENTANYL 2,500MCG/NS250ML(*CRX 2,500 MCG/250 ML BAG 20 MCG IV CONT (08:54)
[2020-04-04] MEDS: DORNASE ALFA INH SOLN 1 MG/ML 2.5 ML AMP 2.5 MG INHALATION ×2 (09:08→21:08)
--- NOTE | 2020-04-04 11:04 | PCDIET ---
Nutrition Follow-Up Complete: Nutrition Diagnosis: Inadequate oral intake related to oral intubation as evidenced by NPO status. Nutrition Goal: Patient to meet estimated nutritional needs. Goal in progress. Patient tolerating Glucerna 1.2 at 50mL/hr without reported issues. No recommendation for rate increase or protein flush addition due to increased Propofol rate. Last recorded weight is 145.5 kg which is increased from last review. +I/O noted. Bowel Motility: No BM reported - MD adding Miralax and Dulcolax today. Labs Reviewed: Hgb (9.3), Hct (29.8), Glu (143), BUN (50), Cr (1.1), Na (134), Alb (2.7), PO4 (5.2) Meds Noted: Albuterol, Fentanyl, Heparin, Protonix, Maxipime, Levemir, Decadron, Atrovent, Vancomycin, Versed, Pulmozyme, Propofol (rate of 39.5mL/hr provides 1043kcal per 24 hours) Additional Notes: Right elbow with friction area. No other skin issues reported. Will continue to monitor with same goal. Nutrition Monitoring and Evaluation: Follow up every Friday/Friday. Follow daily in ICU rounds.
[2020-04-04] MEDS: INSULIN ASPART (*BKC) 100 UNITS/ML SUB-Q ×2 (11:28→17:35)
[2020-04-04] MEDS: polyethylene glycoL 3350 17 GM POWD.PACK PO (11:28)
[2020-04-04 11:48] LABS: Glucose Point of Care 224 (65-105)
[2020-04-04] MEDS: PROPOFOL IV EMULSION 100 ML 31.6 MG IV CONT ×3 (12:38→18:27)
--- NOTE | 2020-04-04 13:54 | WPDINTPN ---
Progress Note: A&P Assessment and Plan (1) Acute respiratory failure with hypoxia: Code(s): J96.01 - Acute respiratory failure with hypoxia Status: Acute Assessment and Plan: Acute Respiratory failure secondary to COVID-19 pneumonia. 03/25- patient was on 8 L nasal cannula on admission 03/26- hypoxia worsened and patient was on AirVo. Later in the evening patient was placed on BiPAP due to continued worsening of hypoxia and was given Lasix. 03/27- Patient required to be intubated - patient on pressure control mode of ventilation with inspiratory pressure of 26, peep of 12, PO2 of 70% FIO2. will wean FiO2 to maintain O2 sats greater than 92% - chest x-ray and ABGs reviewed - continue low tidal volume strategy to prevent volutrauma - patient sedated with fentanyl, Versed, propofol. OFF NIMBEX SINCE 04/02/2020 - echocardiogram showed EF of 70%, diastolic function is abnormal. - Continue bronchodilators - continue Pulmozyme (2) Septic shock: Code(s): A41.9 - Sepsis, unspecified organism; R65.21 - Severe sepsis with septic shock Status: Acute Assessment and Plan: RESOLVED, OFF LEVOPHED - WBC count increasing - continues to have thick secretions from the ET tube, - sputum cultures growing Hemophilus influenzae - urine culture growing E coli ( graves susceptible) - blood cultures growing bacillus species not anthracis. - infectious Disease has been consulted, continue vancomycin - continue vancomycin ( started on 03/31) infectious disease teams switched cefepime to cefazolin (04/04) (3) Pneumonia due to COVID-19 virus: Code(s): U07.1 - COVID-19; J12.89 - Other viral pneumonia Status: Acute Assessment and Plan: SARS-CoV-2 PCR positive -Patient is in Airborne, Droplet and Contact Isolation - STATUS POST dexamethasone and Remdesivir. - inflammatory markers reviewed, LDH, ferritin, CRP trending down, D-dimer trending down - patient received a unit of convalescent COVID-19 plasma on 03/27/2020 (4) Renal failure: Code(s): N19 - Unspecified kidney failure Status: Acute Assessment and Plan: creatinine normalized, urine output has been adequate lactic acid is normal, patient did have worsening of renal function, secondary to septic shock related to UTI, pneumonia -will continue to monitor renal function, electrolytes and urine output (5) Cerebrovascular accident: Onset Date: ~2017 Code(s): I63.9 - Cerebral infarction, unspecified Status: Acute Assessment and Plan: history of CVA although details are not available this time - patient has been on Coumadin at home, started heparin infusion 04/01 - continue statin (6) Hypertension: Code(s): I10 - Essential (primary) hypertension Status: Acute Assessment and Plan: blood pressures have been stable, patient came off Levophed on 03/31/2020 will hold antihypertensives (7) DVT prophylaxis: Code(s): Z29.9 - Encounter for prophylactic measures, unspecified Status: Acute Assessment and Plan: DVT prophylaxis: continue heparin infusion (8) Dietary counseling and surveillance: Code(s): Z71.3 - Dietary counseling and surveillance Status: Acute Assessment and Plan: stress ulcer prophylaxis: Protonix - tube feeds at goal, tolerating (9) Hyperkalemia: Code(s): E87.5 - Hyperkalemia Status: Acute Assessment and Plan: RESOLVED (10) Hyperglycemia: Code(s): R73.9 - Hyperglycemia, unspecified Status: Acute Assessment and Plan: improved, continue small dose of Levemir, Accu-Cheks and sliding scale insulin Additional Plan discussed with and son and updated them with patient's condition and plan of care. Code Status - full code Total Critical Care Time - 36 minutes Due to a high probability of clinically significant, life threatening deteri
[2020-04-04] MEDS: ceFAZolin 2 GM/D5W 50 ML 2 GM/50 ML BAG IVPB ×2 (14:53→21:22)
--- NOTE | 2020-04-04 15:02 | CONS_ITS ---
DATE OF CONSULTATION: 04/04/2020 REASON FOR CONSULTATION: Leukocytosis. HISTORY OF PRESENT ILLNESS: This 45-year-old female cannot provide any history as she is intubated and sedated. She was admitted on March 25 and found to have acute coronavirus infection. Previous testing, if any, is not available. She has been given single transfusion of convalescent plasma, also 10 days of dexamethasone, completed yesterday, the , and 5 days of remdesivir. Her hospital course had been complicated by ongoing leukocytosis and consultation requested today. She remains intubated. A triple-lumen catheter is in place, right IJ. Hospital course otherwise notable for septic shock on the evening of the , requiring pressors, now resolved; acute renal failure, now resolved; previous cerebral infarction; hyperglycemia, and electrolyte abnormalities. She is on tube feeding. Since the , she has been on vancomycin, cefepime, consultation requested today. ALLERGIES: NONE KNOWN. PRESENT MEDICATIONS: List reviewed. No further immunosuppressants. HABITS: Quit smoking in 2018. No alcohol. PAST MEDICAL HISTORY: Morbid obesity, previous , endometrial ablation, cholecystectomy, bladder suspension, chronic urinary incontinence, previous stroke, depression, GERD, hyperlipidemia, hypertension. FAMILY HISTORY: Diabetes and hypertension. SOCIAL HISTORY: She lives in [place], [place]. . Works. REVIEW OF SYSTEMS: Otherwise 14-point review is negative though not obtainable from the patient due to intubated and sedated status. PHYSICAL EXAMINATION: GENERAL: This is a morbidly obese female, in no distress currently. VITAL SIGNS: She was afebrile on admission, had a temperature up to 38.8 on the evening of the . Since, she has been afebrile, 110/54, no pressors, 66, 24, 94% saturation on the noted ventilator settings. SKIN: No generalized rashes. Warm and dry. No ulcers. EENT: Conjunctivae appear clear. Pupils equal, round, and reactive to light. Oral exam is compromised by feeding tube and endotracheal tube. Otherwise, inspection appears normal. NECK: No phlebitis nor purulence at the right IJ triple-lumen catheter site. There is no meningismus. LUNGS: Diminished breath sounds, otherwise clear to auscultation and percussion. CHEST: Equal expansion. Normal AP diameter. CARDIAC: Regular rate and rhythm. No murmur or gallop. Pulses are 2+. ABDOMEN: Obese. No organomegaly, masses, distention, or hernias. She has normal bowel sounds. : She has a Guillaume catheter draining clear yellow urine. RECTAL: There is no rectal tube. EXTREMITIES: 2+ nonpitting edema, hands and feet. No venous varicosities. NEUROLOGIC: Normal muscle tone in all 4s. LABORATORY DATA: White blood cell count on admission 9.5, within normal to slightly abnormal range for a number days, today up to 18.9, was 15.6 yesterday, hemoglobin 9.3, platelets are 244. No differential done today, but earlier showed a minimal left shift. Blood gases show PO2 of 67, A-a gradient higher at 385 compared to prior. BUN 50, creatinine 1.1. Mild hyponatremia. She has hyperglycemia on her chemistry panels. Ferritin 238. AST, ALT twice normal. CRP is 7.1, albumin 2.7. Vancomycin level is noted. Blood cultures from admission, final no growth. Urine culture also no growth. Blood cultures with fever, 1 out of 2 sets, bacillus species. Urine culture with E coli that was from March 30, also with fever and this was susceptible. Sputum culture from the morning of the with beta-lactamase positive H flu. RADIOLOGY: Chest x-rays show extensive bilateral infiltrates without change. ASSESSMENT: 1. Leukocytosis due to coronavirus viral pneumonia, corticosteroids. Other potential ca
[2020-04-04 17:49] LABS: Glucose Point of Care 219 (65-105)
[2020-04-04] MEDS: ATORVASTATIN 20 MG TABLET PO (20:20)
[2020-04-04] MEDS: FENTANYL 2,500MCG/NS250ML(*CRX 2,500 MCG/250 ML BAG 17.5 MCG IV CONT (21:21)
[2020-04-04] MEDS: PROPOFOL IV EMULSION 100 ML 27.6 MG IV CONT (21:23)
[2020-04-04 23:54] LABS: Glucose Point of Care 144 (65-105)
[2020-04-05] VITALS (43 sets, daily range): BP systolic 91–135; BP diastolic 53–78; PULSE 59–118; RESP 24–94; TEMP 36.4–37.7; O2SAT 91–99
[2020-04-05] MEDS: PROPOFOL IV EMULSION 100 ML 19.7 MG IV CONT (01:16)
[2020-04-05] MEDS: IPRATROPIUM BR 0.02% INH SOLN 0.5 MG/2.5 ML VIAL INHALATION ×3 (02:42→13:42)
[2020-04-05] MEDS: ALBUTEROL SULFATE NEB 2.5 MG/0.5 ML INH INHALATION ×3 (02:42→13:42)
[2020-04-05] MEDS: HEPARIN SOD/D5W 100 UNITS/ML 25,000 UNITS/250 ML BAG 29 UNITS IV CONT (03:05)
[2020-04-05 04:04] LABS: Hematocrit 27.6 % (37.0-47.0); Hemoglobin 8.6 g/dL (12.0-15.0); Mean Corpuscular HGB Conc 31.2 g/dl (32-36); Mean Corpuscular Hemoglobin 24.2 pg (26-34); Mean Corpuscular Volume 77.5 fl (80-100); Mean Platelet Volume 9.9 fl (7.4-10.4); Platelet Count Result 199 k/mm3 (150-375); Red Blood Count 3.56 M/mm3 (4.2-5.4); Red Cell Distribution Width 17.9 % (11.5-14.5)
[2020-04-05 04:19] LABS: Partial Thromboplastin Time 107.1 SECONDS (22.3-36.8)
[2020-04-05 04:24] LABS: Alanine Aminotransferase 56 U/L (4-35); Albumin Level 2.6 g/dL (3.5-5.1); Alkaline Phosphatase 83 U/L (38-126); Anion Gap 4 mmol/L (8-16); Aspartate Amino Transferase 34 U/L (14-36); Bilirubin,Total 0.5 mg/dL (0.2-1.3); Blood Urea Nitrogen 42 mg/dL (7-17); Calcium 9.1 mg/dL (8.4-10.2); Carbon Dioxide 32 mmol/L (22-30); Chloride 99 mmol/L (98-107); Estimated CRCL calculation 122 ml/min; Estimated Glomerular Filt Rate > 60; Glucose 124 mg/dL (65-105); Phosphorus 4.9 mg/dL (2.5-4.5); Potassium 4.6 mmol/L (3.4-5.0); Sodium 135 mmol/L (137-145)
[2020-04-05 04:59] LABS: Alveolar/Arterial O2 Gradient 415.7 mmHg; Base Excess ABG 2.7 mEq/l (+/-2.0); Carboxyhemoglobin 1.8 % THb (0-2.0); Fractional Inspired Oxygen 75 %; HCO3 ABG 27.4 mEq/l (22.0-26.0); Methemoglobin ABG 0.3 %THb (0-1.5); Oxyhemoglobin 91.3 % THb (90.0-100.0); PO2 ABG 73.4 mmHg (80.0-100.0); PO2 FiO2 Ratio Arterial Blood 0.98 %; Reduced Hemoglobin 6.6 %THb (0-5.0); pH ABG 7.422 (7.350-7.450)
[2020-04-05] MEDS: PROPOFOL IV EMULSION 100 ML 31.6 MG IV CONT ×2 (04:59→08:01)
[2020-04-05 05:00] LABS: Device VENTILATOR; Modified Allen's Test Pass; Site Drawn LEFT RADIAL; Total Hemoglobin 7.7 g/dL (12.0-18.0)
[2020-04-05] MEDS: ceFAZolin 2 GM/D5W 50 ML 2 GM/50 ML BAG IVPB (05:00)
[2020-04-05 05:01] LABS: Arterial Blood Gas PEEP 12 cmH2O; Arterial Blood Gas Vent Mode PRESSURE CONTROL; Arterial Blood Gas Ventilator rate 24 /MIN
[2020-04-05] MEDS: CENTRAL LINE FLUSH 10 ML IV PUSH ×2 (05:03→14:42)
[2020-04-05 05:04] LABS: Peak Inspiratory Pressure 28 cmH2O
[2020-04-05] MEDS: PANTOPRAZOLE SODIUM IV 40 MG VIAL IV PUSH (08:02)
[2020-04-05] MEDS: INSULIN DETEMIR 100 UNITS/ML SUB-Q (08:02)
[2020-04-05] MEDS: polyethylene glycoL 3350 17 GM POWD.PACK PO (08:02)
[2020-04-05] MEDS: FUROSEMIDE INJ 40 MG/4 ML VIAL IV PUSH (08:02)
[2020-04-05] MEDS: DORNASE ALFA INH SOLN 1 MG/ML 2.5 ML AMP 2.5 MG INHALATION (08:26)
[2020-04-05] MEDS: FENTANYL 2,500MCG/NS250ML(*CRX 2,500 MCG/250 ML BAG 20 MCG IV CONT (10:00)
[2020-04-05] MEDS: PROPOFOL IV EMULSION 100 ML 39.5 MG IV CONT ×3 (10:28→15:54)
[2020-04-05 12:18] LABS: Partial Thromboplastin Time 80.1 SECONDS (22.3-36.8)
--- NOTE | 2020-04-05 12:39 | PCDIET ---
ICU Rounding Note: Patient tolerating Glucerna 1.2 at 50mL/hr goal rate. Residuals 120mL and below. Last recorded weight is 146.2kg which is increased from last review. +I/O. Bowel Motility: No documented BM - discussed during rounding - continuing Miralax at this time. Labs Reviewed: Hgb (8.6), Hct (27.6), Glu (124), BUN (42), Na (135), Alb (2.6), PO4 (4.9) Meds Noted: Heparin, Novolog, Albuterol, Levemir, Ancef, Atrovent, Fentanyl, Versed, Protonix, Miralax, Propofol (rate of 31.6mL/hr provides 834kcal per day) Additional Notes: Friction area to right elbow with no other skin breakdown reported. Following daily in ICU rounds. Assessing/reassessing every Friday/Friday.
[2020-04-05 12:48] LABS: Glucose Point of Care 200 (65-105)
--- NOTE | 2020-04-05 13:03 | WPDINFPN2 ---
Progress Note: A&P Assessment and Plan (1) Pneumonia due to COVID-19 virus: Code(s): U07.1 - COVID-19; J12.89 - Other viral pneumonia Status: Acute Assessment and Plan: 1, Leukocytosis, multifactorial: physiologic, steroid, #2, and potentially tracheobronchitis or bacterial pneumonia due to H flu. CXR stable/abnormal. 2. CoVid 19 viral pneumonia 3. Prior stroke 4. Respiratory failure REC Ancef #2 (antibacterial #6, prior cefepime), continue, no dose adjustments. BCs in process, and the CVC will need to be changed out if +BC for pathogen. Following WBC over time. Has completed optimal therapy with plasma/dexamethasone/remdesivir. Subjective Date/time seen: 04/05/20 13:03 Interval history: paralyzed and sedated, no pressors Exam Narrative: Exam Narrative: t max 37.7 Const: General: no acute distress Resp: Effort & Inspection: normal respiratory effort Auscultation: clear to auscultation bilaterally Cardio: Rate: regular rate Rhythm: regular rhythm Heart sounds: no murmurs GI: Other: no masses nor abnormal contour Urinary Catheter: Urinary Catheter: patent and draining and urine clear Skin: General skin exam: normal color and no rashes or lesions noted Objective Data Vital Signs Vital Signs: Vital Signs - 24 hr 04/04/20 14:00 04/04/20 14:55 04/04/20 15:00 Temperature Pulse Rate 60 57 L 57 L Respiratory Rate 24 H 24 H Blood Pressure 99/58 L Pulse Oximetry 92 91 04/04/20 15:54 04/04/20 16:00 04/04/20 17:39 Temperature 36.1 C L Pulse Rate 63 59 L 59 L Respiratory Rate 24 H 24 H Blood Pressure 101/62 103/54 L Pulse Oximetry 93 93 04/04/20 18:09 04/04/20 20:00 04/04/20 20:06 Temperature 36.2 C L Pulse Rate 54 L 52 L 50 L Respiratory Rate 24 H 24 H Blood Pressure 101/49 L Pulse Oximetry 94 93 04/04/20 21:11 04/04/20 21:13 04/04/20 21:21 Temperature Pulse Rate 57 L 57 L 60 Respiratory Rate 24 H 24 H Blood Pressure Pulse Oximetry 93 04/04/20 21:23 04/04/20 21:30 04/04/20 22:00 Temperature Pulse Rate 59 L 58 L 62 Respiratory Rate 24 H 24 H 24 H Blood Pressure 108/64 Pulse Oximetry 94 04/04/20 23:41 04/04/20 23:42 04/04/20 23:58 Temperature Pulse Rate 63 62 62 Respiratory Rate 24 H 24 H 24 H Blood Pressure Pulse Oximetry 90 04/05/20 00:00 04/05/20 01:14 04/05/20 01:16 Temperature 36.4 C L Pulse Rate 59 L 62 62 Respiratory Rate 24 H 24 H 24 H Blood Pressure 96/61 L Pulse Oximetry 91 04/05/20 01:18 04/05/20 01:22 04/05/20 01:23 Temperature Pulse Rate 64 64 66 Respiratory Rate 24 H 24 H 24 H Blood Pressure 98/72 L Pulse Oximetry 92 04/05/20 02:00 04/05/20 02:03 04/05/20 02:44 Temperature Pulse Rate 74 74 69 Respiratory Rate 24 H 26 H Blood Pressure 104/77 Pulse Oximetry 93 91 04/05/20 02:46 04/05/20 02:56 04/05/20 03:07 Temperature Pulse Rate 69 72 83 Respiratory Rate 24 H 24 H 25 H Blood Pressure Pulse Oximetry 04/05/20 03:08 04/05/20 03:58 04/05/20 03:59 Temperature Pulse Rate 79 78 78 Respiratory Rate 24 H 26 H 26 H Blood Pressure Pulse Oximetry 04/05/20 04:00 04/05/20 04:49 04/05/20 04:59 Temperature 36.5 C Pulse Rate 75 71 69 Respiratory Rate 24 H 24 H Blood Pressure 101/71 Pulse Oximetry 94 93 04/05/20 06:00 04/05/20 07:20 04/05/20 08:00 Temperature 37.3 C Pulse Rate 73 80 83 Respiratory Rate 94 H 24 H 24 H Blood Pressure 102/69 110/72 Pulse Oximetry 94 94 04/05/20 08:01 04/05/20 08:26 04/05/20 08:36 Temperature Pulse Rate 86 80 78 Respiratory Rate 24 H 24 H 24 H Blood Pressure Pulse Oximetry 94 04/05/20 09:22 04/05/20 09:23 04/05/20 10:00 Temperature Pulse Rate 105 H 105 H 117 H Respiratory Rate 33 H 33 H 36 H Blood Pressure 104/78 Pulse Oximetry 91 04/05/20 10:25 04/05/20 10:28 04/05/20 11:23 Temperature Pulse Rate 118 H 112 H 107 H Respiratory Rate 31 H 27 H Blood P
[2020-04-05] MEDS: HEPARIN SOD/D5W 100 UNITS/ML 25,000 UNITS/250 ML BAG 27 UNITS IV CONT (13:10)
--- NOTE | 2020-04-05 16:55 | WPDINTPN ---
Progress Note: A&P Assessment and Plan (1) Acute respiratory failure with hypoxia: Code(s): J96.01 - Acute respiratory failure with hypoxia Status: Acute Assessment and Plan: Acute Respiratory failure secondary to COVID-19 pneumonia. 03/25- patient was on 8 L nasal cannula on admission 03/26- hypoxia worsened and patient was on AirVo. Later in the evening patient was placed on BiPAP due to continued worsening of hypoxia and was given Lasix. 03/27- Patient required to be intubated - patient on pressure control mode of ventilation with inspiratory pressure of 26, peep of 12, PO2 of 75-80%% FIO2. patient dyssynchronous with the ventilator, chest x-ray looks worse, peep increased to 14. - ABGs show adequate oxygenation and ventilation - continue low tidal volume strategy to prevent volutrauma - patient sedated with fentanyl, Versed, propofol. OFF NIMBEX SINCE 04/02/2020, restarted patient on Nimbex today as she is dyssynchronous with the ventilator - echocardiogram showed EF of 70%, diastolic function is abnormal. - Continue bronchodilators - continue Pulmozyme (2) Septic shock: Code(s): A41.9 - Sepsis, unspecified organism; R65.21 - Severe sepsis with septic shock Status: Acute Assessment and Plan: RESOLVED, OFF LEVOPHED - WBC count increasing - continues to have thick secretions from the ET tube, - sputum cultures growing Hemophilus influenzae - urine culture growing E coli ( graves susceptible) - blood cultures growing bacillus species not anthracis. - infectious Disease has been consulted, continue vancomycin - continue vancomycin ( started on 03/31) infectious disease teams switched cefepime to cefazolin (04/04) - repeat cultures done 04/04/2020 are pending (3) Pneumonia due to COVID-19 virus: Code(s): U07.1 - COVID-19; J12.89 - Other viral pneumonia Status: Acute Assessment and Plan: SARS-CoV-2 PCR positive -Patient is in Airborne, Droplet and Contact Isolation - STATUS POST dexamethasone and Remdesivir. - inflammatory markers reviewed, LDH, ferritin, CRP trending down, D-dimer trending down - patient received a unit of convalescent COVID-19 plasma on 03/27/2020 (4) Renal failure: Code(s): N19 - Unspecified kidney failure Status: Acute Assessment and Plan: creatinine normalized, urine output has been adequate lactic acid is normal, patient did have worsening of renal function, secondary to septic shock related to UTI, pneumonia -will continue to monitor renal function, electrolytes and urine output (5) Cerebrovascular accident: Onset Date: ~2017 Code(s): I63.9 - Cerebral infarction, unspecified Status: Acute Assessment and Plan: history of CVA although details are not available this time - patient has been on Coumadin at home, started heparin infusion 04/01 - continue statin (6) Hypertension: Code(s): I10 - Essential (primary) hypertension Status: Acute Assessment and Plan: blood pressures have been stable, patient came off Levophed on 03/31/2020 will hold antihypertensives (7) DVT prophylaxis: Code(s): Z29.9 - Encounter for prophylactic measures, unspecified Status: Acute Assessment and Plan: DVT prophylaxis: continue heparin infusion (8) Dietary counseling and surveillance: Code(s): Z71.3 - Dietary counseling and surveillance Status: Acute Assessment and Plan: stress ulcer prophylaxis: Protonix - tube feeds at goal, tolerating - continue MiraLax as patient has not had a bowel movement (9) Hyperkalemia: Code(s): E87.5 - Hyperkalemia Status: Acute Assessment and Plan: RESOLVED (10) Hyperglycemia: Code(s): R73.9 - Hyperglycemia, unspecified Status: Acute Assessment and Plan: improved, continue small dose of Levemir, Accu-Cheks and sliding scale insulin Additional
--- NOTE | 2020-04-05 18:17 | PC.NURSE ---
Patient transfered via AirEvac x 2 attempts. AirEvac returned to room stating HR- 30s, O2 70%. Patient bagged per Dr. Dionte Cottrell at bedside. O2 now 95%. Paralytic IVP given before leaving.
--- NOTE | 2020-04-18 13:49 | PM.TDS ---
Transfer Discharge Sum: Prov Provider Date of admission: 03/25/20 09:22 Primary care physician: Zev Moreland, Admitting clinician: Anisha Fontana MD Consults: 03/26/20 Consult to Physician Routine Comment: Consulting Provider: Adam Acuña call center support consultant/MD group to consult: Dr. Acuña Reason for consultation: hypoxic/ COVID + Has provider been notified: Yes 04/04/20 07:55 Consult to Physician Routine Comment: left call back number on pager as requests Consulting Provider: David Jack call center support consultant/ group to consult: INFECTIOUS DISEASE Reason for consultation: covid-19, worsening leukocytosis Has provider been notified: Yes DS: Admitting Diagnosis Admitting Diagnosis Admitting Diagnosis: Acute hypoxic respiratory failure DS: Discharge Diagnosis Discharge Diagnosis (1) Acute respiratory failure with hypoxia: Code(s): J96.01 - Acute respiratory failure with hypoxia Status: Acute Assessment and Plan: Acute Respiratory failure secondary to COVID-19 pneumonia. 03/25- patient was on 8 L nasal cannula on admission 03/26- hypoxia worsened and patient was on AirVo. Later in the evening patient was placed on BiPAP due to continued worsening of hypoxia and was given Lasix. 03/27- Patient required to be intubated - patient on pressure control mode of ventilation with inspiratory pressure of 26, peep of 12, PO2 of 75-80%% FIO2. patient dyssynchronous with the ventilator, chest x-ray looks worse, peep increased to 14. - ABGs show adequate oxygenation and ventilation - continue low tidal volume strategy to prevent volutrauma - patient sedated with fentanyl, Versed, propofol. OFF NIMBEX SINCE 04/02/2020, restarted patient on Nimbex today as she is dyssynchronous with the ventilator - echocardiogram showed EF of 70%, diastolic function is abnormal. - Continue bronchodilators - continue Pulmozyme (2) Septic shock: Code(s): A41.9 - Sepsis, unspecified organism; R65.21 - Severe sepsis with septic shock Status: Acute Assessment and Plan: RESOLVED, OFF LEVOPHED - WBC count increasing - continues to have thick secretions from the ET tube, - sputum cultures growing Hemophilus influenzae - urine culture growing E coli ( graves susceptible) - blood cultures growing bacillus species not anthracis. - infectious Disease has been consulted, continue vancomycin - continue vancomycin ( started on 03/31) infectious disease teams switched cefepime to cefazolin (04/04) - repeat cultures done 04/04/2020 are pending (3) Pneumonia due to COVID-19 virus: Code(s): U07.1 - COVID-19; J12.89 - Other viral pneumonia Status: Acute Assessment and Plan: SARS-CoV-2 PCR positive -Patient is in Airborne, Droplet and Contact Isolation - STATUS POST dexamethasone and Remdesivir. - inflammatory markers reviewed, LDH, ferritin, CRP trending down, D-dimer trending down - patient received a unit of convalescent COVID-19 plasma on 03/27/2020 (4) Renal failure: Code(s): N19 - Unspecified kidney failure Status: Acute Assessment and Plan: creatinine normalized, urine output has been adequate lactic acid is normal, patient did have worsening of renal function, secondary to septic shock related to UTI, pneumonia -will continue to monitor renal function, electrolytes and urine output (5) DVT prophylaxis: Code(s): Z29.9 - Encounter for prophylactic measures, unspecified Status: Acute Assessment and Plan: DVT prophylaxis: continue heparin infusion (6) Cerebrovascular accident: Onset Date: ~2017 Code(s): I63.9 - Cerebral infarction, unspecified Status: Acute Assessment and Plan: history of CVA although details are not available this time - patient has been on Coumadin at home, started heparin infusion 04/01 - continue statin (7) Hypertension: Code(s): I10 - Essential (p
== END 2020-04-05 17:40 | disposition short-term general hospital (02) | DRG 870 ==
LOC: ANHED 09:05 → ANHICU 09:59
PROVIDERS: Internal Medicine; Physician Assistant; Admitting Provider Family Medicine; Emergency Provider General Practice; PCP Internal Medicine; Visit Provider Internal Medicine
DX: A41.89 Other specified sepsis (principal); U07.1 COVID-19; R65.21 Severe sepsis with septic shock; J12.89 Other viral pneumonia; J96.01 Acute respiratory failure with hypoxia; I69.351 Hemiplegia and hemiparesis following cerebral infarction affecting right dominant side; N17.9 Acute kidney failure, unspecified; Z68.41 Body mass index [BMI] 40.0-44.9, adult; N39.0 Urinary tract infection, site not specified; I10 Essential (primary) hypertension; Z79.01 Long term (current) use of anticoagulants; E78.5 Hyperlipidemia, unspecified; E66.01 Morbid (severe) obesity due to excess calories; E87.5 Hyperkalemia; R73.9 Hyperglycemia, unspecified
CPT/HCPCS: 31500; 36415; 36430; 36600; 71045; 80048; 80053; 80202; 82375; 82728; 82805; 83036; 83050; 83605; 83615; 83735; 83880; 84100; 84484; 85025; 85027; 85380; 85610; 85730; 86140; 86850; 86900; 86901; 87040; 87070; 87077; 87086; 87088; 87185; 87186; 87205; 93005; 93306; 93923; 93970; 94002; 94003; 94640; 96374; 99291; A9270; C1751; C9113; J0131; J0330; J0690; J0692; J1100; J1644; J1815; J1940; J2250; J2704; J3010; J3370; J3475; J7030; J7040; J7060; J7120; P9059

== ENCOUNTER 2022-11-05 13:30 | Outpatient (RCR) | payer OTHER, SELFPAY | END 2022-11-12 11:59 | disposition home or self-care (01) | LOC: ANHCPREHAB 13:30 | PROVIDERS: PCP Internal Medicine | DX: J84.10 Pulmonary fibrosis, unspecified (principal) | CPT/HCPCS: 94625; G0239 ==